=== PATIENT | male | born 1985 | race Caucasian/White ===

== ENCOUNTER 2018-11-12 14:03 | Emergency (ER) | payer OTHER ==
[2018-11-12 14:15] VITALS: BP 113/60; PULSE 62; RESP 20; TEMP 98
--- NOTE | 2018-11-12 15:17 | XR ---
EXAMINATION TYPE: XR chest 2V DATE OF EXAM: 11/12/2018 COMPARISON: 02/17/2016 TECHNIQUE: PA and lateral views submitted. HISTORY: Cough FINDINGS: Subsegmental changes at the left lung base. No pleural effusion or pneumothorax. Heart size normal. N o overt failure. IMPRESSION: 1. Left basilar atelectasis or early infiltrate.
--- NOTE | 2018-11-12 16:06 | ED ---
URI HPI - General Chief Complaint: Upper Respiratory Infection Stated Complaint: cough/body aches Time Seen by Provider: 11/12/18 14:24 Source: patient Mode of arrival: ambulatory Limitations: no limitations - History of Present Illness Initial Comments: 33-year-old male presenting today for chief complaint of cough 2 weeks. Patient states everyone in the household has had a cough. He states he's also had diarrhea and vomiting 2 days prior he states this has since subsided. Patient states that he has had chills denies fever. Patient states his daughter has had vomiting diarrhea 2 days prior. Patient denies chest pain dyspnea dyspnea on exertion lower extremity swelling neck stiffness photophobia hematemesis melena hematochezia. Remainder review of system negative upon arrival patient appears well no signs acute distress vital signs within except limits. Patient afebrile. - Related Data Home Medications Medication Instructions Recorded Confirmed Ibuprofen [Motrin Ib] 400 mg PO Q6H PRN 11/12/18 11/12/18 guaiFENesin [Mucinex] 600 mg PO Q12HR PRN 11/12/18 11/12/18 Previous Rx's Medication Instructions Recorded Azithromycin [Zithromax Z-pack] 0 mg PO DIRECTED #6 tab 11/12/18 Allergies Allergy/AdvReac Type Severity Reaction Status Date / Time loratadine [From Claritin] Allergy Confusion Verified 11/12/18 14:50 Review of Systems ROS Statement: Those systems with pertinent positive or pertinent negative responses have been documented in the HPI. ROS Other: All systems not noted in ROS Statement are negative. Past Medical History Past Medical History: No Reported History Additional Past Medical History / Comment(s): fr neck c1 fx History of Any Multi-Drug Resistant Organisms: None Reported Past Surgical History: No Surgical Hx Reported Past Psychological History: No Psychological Hx Reported Smoking Status: Current every day smoker Past Alcohol Use History: None Reported Past Drug Use History: None Reported General Exam - General Exam Comments Initial Comments: General: The patient is awake and alert, in no distress, and does not appear acutely ill. Eye: +3 mm pupils are equal, round and reactive to light, extra-ocular movements are intact. No nystagmus. There is normal conjunctiva bilaterally. No signs of icterus. No photophobia Ears, nose, mouth and throat: There are moist mucous membranes and no oral lesions. Oropharynx was not erythematous there is no tonsillar enlargement exudates or lesions. Uvula midline. Tympanic membranes are not erythematous or is no effusions bulging or retraction. No tenderness to palpation of the mastoid. No anterior cervical lymphadenopathy. Rhinorrhea, clear and bilateral nares. No tripoding, no drooling. Neck: The neck is supple, there is no tenderness or JVD. No nuchal rigidity negative Brudzinski and Kernig Cardiovascular: There is a regular rate and rhythm. No murmur, rub or gallop is appreciated. Respiratory: Lungs are clear to auscultation, respirations are non-labored, breath sounds are equal. No wheezes, stridor, rales, or rhonchi. No retractions or abdominal breathing. Gastrointestinal: Soft, non-distended, non-tender abdomen without masses or organomegaly noted. There is no rebound or guarding present. Bowel sounds are unremarkable. Musculoskeletal: Normal ROM, no tenderness. Strength 5/5. Sensation intact. Radial pulses equal bilaterally 2+. Neurological: A&O x 3. CN II-XII intact, There are no obvious motor or sensory deficits. Coordination appears grossly intact. Speech appears normal, no muffling. Skin: Skin is warm and dry and no rashes or lesions are noted. No extremity edema Psychiatric: Cooperative Limitations: no limitations Course Vital Signs 11/12/18 14:12 Temperature 98 F Pulse Rate 62 Respiratory 20 Rate Blood Pressure 113/60 O2 Sat by Pulse 99 Oximetry Medical Decision Making - Medical Decision Making Well-appearing 33-year-old male presenting for cough 3. Chest x-ray was obtained revealing findings consistent with atelectasis versus early developing pneumonia. Given patient's increasing cough with history of chills patient be started on antibiotic therapy for developing pneumonia. Lungs are clear to auscultation. Patient appears well oxygenating well on room air. No signs of toxicity. No meningeal irritation signs. Abdominal exam benign. Patient appears well patient be discharged with antibiotic therapy and outpatient follow-up with primary care provider. Patient is agreeable plan, we discussed return parameters patient verbalizes understanding. Discussed case with a provider Dr. Marquez patient plan of care and discharge. - Lab Data Lab Results 11/12/18 Range/Units 15:00 Influenza Type A RNA Not Detected (Not Detectd) Influenza Type B (PCR) Not Detected (Not Detectd) Disposition Clinical Impression: Cough Disposition: HOME SELF-CARE Condition: Good Instructions (If sedation given, give patient instructions): Upper Respiratory Infection (ED) Additional Instructions: Please use medication as discussed. Please follow-up with family doctor in the next 2 days. Please return to emergency room if the symptoms increase or worsen or for any other concerns. Prescriptions: Azithromycin [Zithromax Z-pack] 0 mg PO DIRECTED #6 tab Is patient prescribed a controlled substance at d/c from ED?: No Referrals: None,Stated [Primary Care Provider] - 1-2 days Time of Disposition: 16:06
== END 2018-11-12 16:28 | disposition home or self-care (01) ==
LOC: EC 14:03
DX: R05 Cough (principal); R19.7 Diarrhea, unspecified; R11.10 Vomiting, unspecified; F17.200 Nicotine dependence, unspecified, uncomplicated; Z88.8 Allergy status to other drugs, medicaments and biological substances
CPT/HCPCS: 71046; 87502; 99283

== ENCOUNTER 2019-11-23 17:59 | Emergency (ER) | payer OTHER ==
[2019-11-23 18:05] VITALS: BP 122/77; PULSE 74; RESP 18; TEMP 98.2
[2019-11-23] MEDS ORDERED: ACET/COD 300 MG/30 MG STARTER PACK 6 TAB BTL PO STA (18:33)
[2019-11-23] MEDS ORDERED: CYCLOBENZAPRINE 10MG STARTER 3 TAB BTL PO STA (18:33)
--- NOTE | 2019-11-23 18:33 | ED ---
Back Pain HPI - General Chief Complaint: Back Pain/Injury Stated Complaint: lower back pain Time Seen by Provider: 11/23/19 18:18 Source: patient Limitations: no limitations - History of Present Illness Initial Comments: 34-year-old male presents today for chief complaint of low back pain x weeks. 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 She denies loss of bowel bladder control urinary tensions fever or IV drug use. Patient denies any falls or direct trauma to the back denies a history of cancer. Patient denies any flank pain chest pain shortness of breath he denies any inability to ambulate patient has no additional complaints. Upon arrival patient appears well there is no signs of acute distress. - Related Data Home Medications Medication Instructions Recorded Confirmed Ibuprofen [Motrin Ib] 400 mg PO Q6H PRN 11/12/18 11/12/18 guaiFENesin [Mucinex] 600 mg PO Q12HR PRN 11/12/18 11/12/18 Previous Rx's Medication Instructions Recorded Azithromycin [Zithromax Z-pack] 0 mg PO DIRECTED #6 tab 11/12/18 Allergies Allergy/AdvReac Type Severity Reaction Status Date / Time loratadine [From Claritin] Allergy Confusion Verified 11/23/19 18:05 Review of Systems ROS Statement: Those systems with pertinent positive or pertinent negative responses have been documented in the HPI. ROS Other: All systems not noted in ROS Statement are negative. Past Medical History Past Medical History: No Reported History Additional Past Medical History / Comment(s): fr neck c1 fx History of Any Multi-Drug Resistant Organisms: None Reported Past Surgical History: No Surgical Hx Reported Past Psychological History: No Psychological Hx Reported Smoking Status: Current every day smoker Past Alcohol Use History: None Reported Past Drug Use History: None Reported General Exam - General Exam Comments Initial Comments: General: The patient is awake and alert, in no distress Eye: Pupils are equal, round and reactive to light, extra-ocular movements are intact. No nystagmus. There is normal conjunctiva bilaterally. No signs of icterus. Cardiovascular: There is a regular rate and rhythm. No murmur, rub or gallop is appreciated. Respiratory: Lungs are clear to auscultation, respirations are non-labored, breath sounds are equal. No wheezes, stridor, rales, or rhonchi. Musculoskeletal: Normal inspection of the cervical thoracic and lumbar spine. No midline tenderness. Patient is midline tenderness mostly paravertebral muscles of the lumbar spine. Full range motion of the lower extremities negative straight leg raise. Strength of the lower extremities. Sensation of lower extremities including the saddle region patient refused digital rectal examination. DP pulses equal bilaterally 2+. Ambulates and moves without difficulty. Neurological: A&O x 3. CN II-XII intact grossly, There are no obvious motor or sensory deficits. Coordination appears grossly intact. Speech is normal. Skin: Skin is warm and dry and no rashes or lesions are noted. Psychiatric: Cooperative, appropriate mood & affect, normal judgment. Limitations: no limitations Course Vital Signs 11/23/19 18:03 Temperature 98.2 F Pulse Rate 74 Respiratory 18 Rate Blood Pressure 122/77 O2 Sat by Pulse 100 Oximetry Medical Decision Making - Medical Decision Making 34-year-old male presenting today for chief complaint of low back pain. He has a lot of repetitive action at work. No midline tenderness no history concerning for cauda equina patient refused a rectal exam however there is no concerning symptoms such as loss of bowel bladder control. No other red flags. (-) SLR. No radiation of pain. Patient most likely has muscle strain will be discharged with muscle relaxer. patient agreeable to care plan. Disposition Clinical Impression: Lower back injury, Low back strain, Low back pain Disposition: HOME SELF-CARE Instructions (If sedation given, give patient instructions): Acute Low Back Pain (ED) Additional Instructions: Please use medication as discussed. Please follow-up with family doctor in the next 2 days. Please return to emergency room if the symptoms increase or worsen or for any other concerns. Is patient prescribed a controlled substance at d/c from ED?: No Referrals: None,Stated [Primary Care Provider] - 1-2 days Time of Disposition: 18:33
== END 2019-11-23 18:46 | disposition home or self-care (01) ==
LOC: EC 17:59
DX: S39.012A Strain of muscle, fascia and tendon of lower back, initial encounter (principal); F17.200 Nicotine dependence, unspecified, uncomplicated; Z87.81 Personal history of (healed) traumatic fracture; Z88.8 Allergy status to other drugs, medicaments and biological substances; X50.0XXA Overexertion from strenuous movement or load, initial encounter; Y93.89 Activity, other specified
CPT/HCPCS: 99283

== ENCOUNTER 2020-03-02 09:35 | Emergency (ER) | payer OTHER ==
[2020-03-02 09:43] VITALS: RESP 18
[2020-03-02] MEDS ORDERED: methylPREDNISolone SOD SUCCI 125 MG/2 ML VIAL IV STA (09:44)
[2020-03-02] MEDS ORDERED: FAMOTIDINE 20 MG/2 ML VIAL IV STA (09:44)
--- NOTE | 2020-03-02 09:46 | ED ---
Allergic Reaction HPI - General Stated complaint: Allergic reaction Time Seen by Provider: 03/02/20 09:38 Source: patient, EMS, RN notes reviewed Mode of arrival: EMS Limitations: no limitations - History of Present Illness Initial Comments: 34-year-old male present emergency department with chief complaint ALLERGIC reaction. Patient states he was stung 3 times and has not, facial region. Patient states that he's had swelling in the past related to bee stings. P.m. worried because he started having some throat itching this. Patient was given Benadryl IV in therapy by EMS. Patient states it is helping. Patient denies any other system complaints she does feel slightly itchy. - Related Data Home Medications Medication Instructions Recorded Confirmed Ibuprofen [Motrin Ib] 400 mg PO Q6H PRN 11/12/18 11/12/18 guaiFENesin [Mucinex] 600 mg PO Q12HR PRN 11/12/18 11/12/18 Previous Rx's Medication Instructions Recorded Azithromycin [Zithromax Z-pack] 0 mg PO DIRECTED #6 tab 11/12/18 Allergies Allergy/AdvReac Type Severity Reaction Status Date / Time bee venom protein (honey bee) Allergy Dyspnea Verified 03/02/20 09:39 loratadine [From Claritin] Allergy Confusion Verified 11/23/19 18:05 Review of Systems ROS Statement: Those systems with pertinent positive or pertinent negative responses have been documented in the HPI. ROS Other: All systems not noted in ROS Statement are negative. Past Medical History Past Medical History: No Reported History Additional Past Medical History / Comment(s): fr neck c1 fx History of Any Multi-Drug Resistant Organisms: None Reported Past Surgical History: No Surgical Hx Reported Past Psychological History: No Psychological Hx Reported Smoking Status: Never smoker Past Alcohol Use History: None Reported Past Drug Use History: None Reported General Exam Limitations: no limitations General appearance: alert, in no apparent distress Head exam: Present: atraumatic, normocephalic, normal inspection Eye exam: Present: normal appearance, PERRL, EOMI. Absent: scleral icterus, conjunctival injection, periorbital swelling ENT exam: Present: normal exam, normal oropharynx, mucous membranes moist, TM's normal bilaterally, normal external ear exam Neck exam: Present: normal inspection, full ROM. Absent: tenderness, meningismus, lymphadenopathy Respiratory exam: Present: normal lung sounds bilaterally. Absent: respiratory distress, wheezes, rales, rhonchi, stridor Cardiovascular Exam: Present: regular rate, normal rhythm, normal heart sounds. Absent: systolic murmur, diastolic murmur, rubs, gallop, clicks Skin exam: Present: warm, dry, intact, normal color, rash (Mild swelling noted on the right ear, right side of his scalp and anterior neck region) Course Vital Signs 03/02/20 03/02/20 09:39 09:52 Temperature 97.9 F Pulse Rate 68 Respiratory 18 18 Rate Blood Pressure 118/67 O2 Sat by Pulse 97 Oximetry - Reevaluation(s) Reevaluation #1: 03/02/20 10:29 Patient reevaluated stating that symptoms have resolved patient feels greatly improved. Patient will be discharged Medical Decision Making - Medical Decision Making 34-year-old male presented for bee sting. Patient had 3 bee stings noted to the facial region. Patient did have some mild symptoms patient was given some Medrol, penicillin emergency department was given Benadryl prior arrival patient will continue Benadryl every 6 hours return for any worsening. Disposition Clinical Impression: Allergic reaction to insect sting Disposition: HOME SELF-CARE Condition: Stable Instructions (If sedation given, give patient instructions): Insect Bite or Sting (ED) Additional Instructions: Continue Benadryl every 6 hours. Please return to the Emergency Department if symptoms worsen or any other concerns. Is patient prescribed a controlled substance at d/c from ED?: No Referrals: None,Stated [Primary Care Provider] - 1-2 days Time of Disposition: 10:30
[2020-03-02 11:00] VITALS: BP 114/64; PULSE 63; TEMP 98.2
== END 2020-03-02 09:56 | disposition home or self-care (01) ==
LOC: EC 09:35
DX: T63.441A Toxic effect of venom of bees, accidental (unintentional), initial encounter (principal); Z91.030 Bee allergy status; Z88.8 Allergy status to other drugs, medicaments and biological substances; Y93.89 Activity, other specified
CPT/HCPCS: 99284; 96374; 96375; J2930

== ENCOUNTER 2020-04-19 16:04 | Observation (INO) | payer OTHER ==
[2020-04-19 17:10] LABS: Basophils # (A) 0.1 k/uL (0-0.2); Basophils % (A) 1 %; Eosinophils # (A) 0.2 k/uL (0-0.7); Eosinophils % (A) 2 %; HCT 49.5 % (39.0-53.0); HGB 16.1 gm/dL (13.0-17.5); Lymphocytes # (A) 1.9 k/uL (1.0-4.8); Lymphocytes % (A) 22 %; MCH 30.1 pg (25.0-35.0); MCHC 32.5 g/dL (31.0-37.0); MCV 92.5 fL (80.0-100.0); Mean Platelet Volume 6.8; Monocytes # (A) 0.6 k/uL (0-1.0); Monocytes % (A) 6 %; Neutrophils # (A) 5.9 k/uL (1.3-7.7); Neutrophils % (A) 67 %; Platelet Count 275 k/uL (150-450); RBC 5.35 m/uL (4.30-5.90); RDW 12.1 % (11.5-15.5); WBC 8.8 k/uL (3.8-10.6)
--- NOTE | 2020-04-19 17:16 | XR ---
EXAMINATION: XR chest 2V DATE AND TIME: 04/19/2020 5:12 PM CLINICAL INDICATION: PHH; Chest Pain TECHNIQUE: Departmental protocol COMPARISON: 11/12/2018 FINDINGS: The lungs are clear. The pleural spaces are negative. The cardiac silhouette is not enlarged. The remainder of the mediastinal silhouette is unremarkable. The skeletal structures and soft tissues are negative for acute findings. IMPRESSION: No acute radiographic process.
[2020-04-19 17:19] LABS: Partial Thromboplastin Time 23.7 sec (22.0-30.0); Prothrombin Time 10.4 sec (9.0-12.0)
[2020-04-19 17:22] LABS: ALT 18 U/L (4-49); AST 27 U/L (17-59); African American GFR (CKD) >90 (>60 ml/min/1.73 sqM); Albumin 4.4 g/dL (3.5-5.0); Alkaline Phosphatase 59 U/L (38-126); Anion Gap 7 mmol/L; Blood Urea Nitrogen 23 mg/dL (9-20); Calcium 9.7 mg/dL (8.4-10.2); Carbon Dioxide 26 mmol/L (22-30); Chloride 104 mmol/L (98-107); Glucose 125 mg/dL (74-99); Lipase 55 U/L (23-300); Magnesium 2.1 mg/dL (1.6-2.3); Non-African American GFR(CKD) >90 (>60 ml/min/1.73 sqM); Potassium 3.9 mmol/L (3.5-5.1); Sodium 137 mmol/L (137-145); Total Bilirubin 0.7 mg/dL (0.2-1.3); Total Protein 7.2 g/dL (6.3-8.2)
--- NOTE | 2020-04-19 17:31 | ED ---
General Adult HPI - General Chief complaint: Chest Pain Stated complaint: chest pain Time Seen by Provider: 04/19/20 16:29 Source: patient, RN notes reviewed Mode of arrival: wheelchair Limitations: no limitations - History of Present Illness Initial comments: 34-year-old male without any significant past medical history presents to the emergency department for a chief complaint of chest pain. Patient states this chest pain has been intermittent over the past 5 years. States it usually has a pressure feeling in the center of his chest after he does certain physical activities. Patient reports that sometimes it feels like his heart is beating quickly at those times. He becomes short of breath. Patient reports this happened again last night and he still had some mild pressure so decided to present to the emergency room. Patient denies any leg swelling. Denies shortness of breath. Patient is requesting a work note as this sometimes happ ens at work.Patient has no other complaints at this time including shortness of breath, abdominal pain, nausea or vomiting, headache, or visual changes. - Related Data Home Medications Medication Instructions Recorded Confirmed Ibuprofen [Motrin Ib] 400 mg PO Q6H PRN 11/12/18 11/12/18 guaiFENesin [Mucinex] 600 mg PO Q12HR PRN 11/12/18 11/12/18 Previous Rx's Medication Instructions Recorded Azithromycin [Zithromax Z-pack (6 0 mg PO DIRECTED #6 tab 11/12/18 tabs)] Allergies Allergy/AdvReac Type Severity Reaction Status Date / Time bee venom protein (honey bee) Allergy Dyspnea Verified 04/19/20 16:21 loratadine [From Claritin] Allergy Confusion Verified 04/19/20 16:21 Review of Systems ROS Statement: Those systems with pertinent positive or pertinent negative responses have been documented in the HPI. ROS Other: All systems not noted in ROS Statement are negative. Past Medical History Past Medical History: No Reported History Additional Past Medical History / Comment(s): fr neck c1 fx History of Any Multi-Drug Resistant Organisms: None Reported Past Surgical History: No Surgical Hx Reported Past Psychological History: No Psychological Hx Reported Smoking Status: Never smoker Past Alcohol Use History: None Reported Past Drug Use History: None Reported General Exam Limitations: no limitations General appearance: alert, in no apparent distress Head exam: Present: atraumatic, normocephalic, normal inspection Eye exam: Present: normal appearance, PERRL, EOMI. Absent: scleral icterus, conjunctival injection, periorbital swelling ENT exam: Present: normal exam, mucous membranes moist Neck exam: Present: normal inspection, full ROM. Absent: tenderness, meningismus, lymphadenopathy Respiratory exam: Present: normal lung sounds bilaterally. Absent: respiratory distress, wheezes, rales, rhonchi, stridor Cardiovascular Exam: Present: regular rate, normal rhythm, normal heart sounds. Absent: systolic murmur, diastolic murmur, rubs, gallop, clicks GI/Abdominal exam: Present: soft, normal bowel sounds. Absent: distended, tenderness, guarding, rebound, rigid Neurological exam: Present: alert Course Vital Signs 04/19/20 16:19 Temperature 98.8 F Pulse Rate 65 Respiratory 20 Rate Blood Pressure 115/71 O2 Sat by Pulse 97 Oximetry EKG Findings - EKG Comments: EKG Findings:: NSR, vent rate 70. TN int 148, QTc 403 Medical Decision Making - Medical Decision Making Vitals are stable. CBC CMP unremarkable. Troponin is negative. Chest x-ray shows no acute radiographic process. EKG shows a normal sinus rhythm with an incomplete right bundle. Given patient's symptoms that worsen on exertion and are described as a pressure patient will be admitted for cardiology consultation and trending troponin. - Lab Data Result diagrams: 04/19/20 16:55 04/19/20 16:55 Lab Results 04/19/20 04/19/20 04/19/20 Range/Units 16:55 16:55 16:55 WBC 8.8 (3.8-10.6) k/uL RBC 5.35 (4.30-5.90) m/uL Hgb 16.1 (13.0-17.5) gm/dL Hct 49.5 (39.0-53.0) % MCV 92.5 (80.0-100.0) fL MCH 30.1 (25.0-35.0) pg MCHC 32.5 (31.0-37.0) g/dL RDW 12.1 (11.5-15.5) % Plt Count 275 (150-450) k/uL Neutrophils % 67 % Lymphocytes % 22 % Monocytes % 6 % Eosinophils % 2 % Basophils % 1 % Neutrophils # 5.9 (1.3-7.7) k/uL Lymphocytes # 1.9 (1.0-4.8) k/uL Monocytes # 0.6 (0-1.0) k/uL Eosinophils # 0.2 (0-0.7) k/uL Basophils # 0.1 (0-0.2) k/uL PT 10.4 (9.0-12.0) sec INR 1.0 (<1.2) APTT 23.7 (22.0-30.0) sec Sodium 137 (137-145) mmol/L Potassium 3.9 (3.5-5.1) mmol/L Chloride 104 (98-107) mmol/L Carbon Dioxide 26 (22-30) mmol/L Anion Gap 7 mmol/L BUN 23 H (9-20) mg/dL Creatinine 0.86 (0.66-1.25) mg/dL Est GFR (CKD-EPI)AfAm >90 (>60 ml/min/1.73 sqM) Est GFR (CKD-EPI)NonAf >90 (>60 ml/min/1.73 sqM) Glucose 125 H (74-99) mg/dL Calcium 9.7 (8.4-10.2) mg/dL Magnesium 2.1 (1.6-2.3) mg/dL Total Bilirubin 0.7 (0.2-1.3) mg/dL AST 27 (17-59) U/L ALT 18 (4-49) U/L Alkaline Phosphatase 59 (38-126) U/L Troponin I (0.000-0.034) ng/mL Total Protein 7.2 (6.3-8.2) g/dL Albumin 4.4 (3.5-5.0) g/dL Lipase 55 (23-300) U/L 04/19/20 Range/Units 16:55 WBC (3.8-10.6) k/uL RBC (4.30-5.90) m/uL Hgb (13.0-17.5) gm/dL Hct (39.0-53.0) % MCV (80.0-100.0) fL MCH (25.0-35.0) pg MCHC (31.0-37.0) g/dL RDW (11.5-15.5) % Plt Count (150-450) k/uL Neutrophils % % Lymphocytes % % Monocytes % % Eosinophils % % Basophils % % Neutrophils # (1.3-7.7) k/uL Lymphocytes # (1.0-4.8) k/uL Monocytes # (0-1.0) k/uL Eosinophils # (0-0.7) k/uL Basophils # (0-0.2) k/uL PT (9.0-12.0) sec INR (<1.2) APTT (22.0-30.0) sec Sodium (137-145) mmol/L Potassium (3.5-5.1) mmol/L Chloride (98-107) mmol/L Carbon Dioxide (22-30) mmol/L Anion Gap mmol/L BUN (9-20) mg/dL Creatinine (0.66-1.25) mg/dL Est GFR (CKD-EPI)AfAm (>60 ml/min/1.73 sqM) Est GFR (CKD-EPI)NonAf (>60 ml/min/1.73 sqM) Glucose (74-99) mg/dL Calcium (8.4-10.2) mg/dL Magnesium (1.6-2.3) mg/dL Total Bilirubin (0.2-1.3) mg/dL AST (17-59) U/L ALT (4-49) U/L Alkaline Phosphatase (38-126) U/L Troponin I <0.012 (0.000-0.034) ng/mL Total Protein (6.3-8.2) g/dL Albumin (3.5-5.0) g/dL Lipase (23-300) U/L Disposition Clinical Impression: Chest pain Disposition: ADMITTED IP TO THIS HOSP Is patient prescribed a controlled substance at d/c from ED?: No Referrals: None,Stated [Primary Care Provider] - 1-2 days Time of Disposition: 18:22
[2020-04-19] MEDS ORDERED: ASPIRIN 81 MG PO STA (18:18)
[2020-04-19] MEDS: SODIUM CHLORIDE 0.9% 1,000 ML IV SCH (18:57)
[2020-04-19 19:00] VITALS: RESP 18
--- NOTE | 2020-04-19 23:28 | P.HPIM ---
History of Present Illness H&P Date: 04/19/20 The patient is a 34-year-old male with no known PMH who presented to the ED with complaints of chest pain. The patient reports that he has been experiencing intermittent substernal chest pain with tenderness for the past 5 years. He reports that the main concern is the tenderness, and that the pain is rare. The pain and tenderness largely comes on after he exercises his chest muscles (pushups and chest press). It is sharp in nature, substernal, nonpleuritic, and nonradiating. He did report that several times over the past 5 years, he has woken up suddenly, during these episodes with his tenderness and pain radiating down to his left arm, with associated palpitations and shortness of breath that is resolved completely with breathing out the window of his room. He reports that his exercise tolerance is excellent and that he is able to run a 6-1/2 minute mile and exercises on a daily basis. She denied lower extremity edema, orthopnea, PND, family history of premature coronary artery disease, nausea, vomiting, or diaphoresis. Denied cough, fever, chills. Denied abdominal pain, or diarrhea. In the emergency room, an EKG revealed a normal sinus rhythm at 70 bpm with an incomplete right bundle heena block. Chest x-ray was unremarkable. Troponin was negative. Review of Systems Pertinent positives and negatives as discussed in HPI, a complete review of systems was performed and all other systems are negative. Past Medical History Past Medical History: No Reported History Additional Past Medical History / Comment(s): fr neck c1 fx History of Any Multi-Drug Resistant Organisms: None Reported Past Surgical History: No Surgical Hx Reported Past Psychological History: No Psychological Hx Reported Smoking Status: Former smoker Past Alcohol Use History: Abuse Additional Past Alcohol Use History / Comment(s): quit drinking 2 months ago; used to drink heavily Past Drug Use History: None Reported Medications and Allergies Home Medications Medication Instructions Recorded Confirmed Type No Known Home Medications 04/19/20 04/19/20 History Allergies Allergy/AdvReac Type Severity Reaction Status Date / Time bee venom protein (honey bee) Allergy Dyspnea Verified 04/19/20 18:30 loratadine [From Claritin] Allergy Confusion Verified 04/19/20 18:30 Physical Exam Vitals: Vital Signs Temp Pulse Pulse Resp BP BP Pulse Ox 09/24/20 19:06 98.3 F 53 L 18 120/70 98 04/19/20 18:59 98.9 F 71 18 125/74 96 04/19/20 16:19 98.8 F 65 20 115/71 97 Intake and Output 04/19/20 04/19/20 04/20/20 14:59 22:59 06:59 Intake Total 450 Balance 450 Intake: Oral 450 Other: Weight 81.647 kg General: non toxic, no distress, appears at stated age, normal weight Derm: no unusual rashes/lesions no unusual ecchymoses, warm, dry Head: atraumatic, normocephalic, symmetric Eyes: EOMI, no lid lag, anicteric sclera, pupils equal round reactive to light ENT: Nose and ears atraumatic, no thrush, no pharyngeal erythema Neck: No thyromegaly, no cervical lymphadenopathy, trachea midline, supple Mouth: no lip lesion, mucus membranes moist Cardiovascular: S1S2 reg, no murmur, positive posterior tibial pulse bilateral, no edema, capillary refill less than 2 seconds, no chest wall tenderness to pal pation Lungs: CTA bilateral, no rhonchi, no rales , no accessory muscle use Abdominal: soft, nontender to palpation, no guarding, no appreciable organomegaly, normal bowel sounds Ext: no gross muscle atrophy, muscle strength 5 out of 5 in all 4 extremities grossly, no contractures, Neuro: CN II-XI grossly intact, light touch intact all 4 extremities, finger to nose within normal limits, Psych: Alert, oriented, appropriate affect Results CBC & Chem 7: 04/19/20 16:55 04/19/20 16:55 Labs: Abnormal Lab Results - Last 24 Hours (Table) 04/19/20 Range/Units 16:55 BUN 23 H (9-20) mg/dL Glucose 125 H (74-99) mg/dL Assessment and Plan Plan: Chest pain, likely costochondritis with component of anxiety and panic disorder, rule out ACS -Cardiology consulted -Echocardiogram -Cardiac monitoring -Trend troponin DVT prophylaxis -Heparin subq The patient is admitted with an anticipated less than 2 midnight stay for evaluation of chest pain CODE STATUS: Full Code Discussed with: Patient Anticipated discharge date: 04/[address]: Home A total of 35 minutes was spent on the care of this complex patient more than 50% of the time was spent in counseling and care coordination.
[2020-04-20] MEDS: HEPARIN SODIUM,PORCINE 5,000 UNIT/ML 1 ML VIAL SQ SCH ×2 (01:58→09:24)
[2020-04-20] MEDS: SODIUM CHLORIDE 0.9% 1,000 ML IV SCH (01:59)
[2020-04-20 06:12] LABS: Cholesterol 207 mg/dL (<200); HDL Cholesterol 44 mg/dL (40-60); LDL Cholesterol,Calculated 150 mg/dL (0-99); Triglycerides 64 mg/dL (<150)
[2020-04-20] MEDS ORDERED: ASPIRIN 325 MG TAB PO SCH (09:00)
--- NOTE | 2020-04-20 10:36 | P.CRDCN ---
History of Present Illness History of present illness: HISTORY OF PRESENTING ILLNESS This is a pleasant 34-year-old male past medical history significant for heavy alcohol use and former nicotine dependence. He states he last had a drink of alcohol or cigarette 2 months ago. He denies prior history of coronary artery disease and does not follow regularly with a refuge worker for any reason. We have been asked to see in consultation for chest pain. He describes a tight tightening sensation in the midsternal/epigastric region. This discomfort has been intermittent and ongoing for the previous 5 years. He states he is quite active physically he runs regularly. He denies chest discomfort with exertion or activity. He states the chest discomfort comes at times after he has done an upper body workout. He feels as though something is pulling or tugging in his chest. There is no radiation through to the back, down the arm, into the neck or jaw. He denies associated shortness of breath, dizziness, palpitations, nausea, vomiting or diaphoresis. He is seen and examined resting comfortably laying flat in bed in no acute distress. On this occasion he was woken up in the middle of the night with a tight sensation in the middle of his chest and he states he was unable to speak for 20 seconds thereafter. DIAGNOSTICS EKG reveals sinus mechanism with right bundle branch 2. No acute ischemic changes noted. Chest xray negative for an acute cardiopulmonary process. Laboratory reviewed, CBC unremarkable, sodium 137, potassium 3.9, creatinine 0.86, cardiac enzymes negative 3, LDL 1:15 HDL 44. He takes no daily cardiac medications REVIEW OF SYSTEMS At the time of my exam: CONSTITUTIONAL: Denies fever or chills. CARDIOVASCULAR: Denies chest pain, shortness of breath, orthopnea, PND or palpitations. RESPIRATORY: Denies cough. GASTROINTESTINAL: Denies abdominal pain, diarrhea, constipation, nausea or vomiting. MUSCULOSKELETAL: Denies myalgias. NEUROLOGIC: Denies numbness, tingling or weakness. ENDOCRINE: Denies fatigue, weight change, polydipsia or polyurina. GENITOURINARY: Denies burning, hematuria or urgency with micturation. HEMATOLOGIC: Denies history of anemia or bleeding. PHYSICAL EXAMINATION Blood pressure 114/74 heart rate 51 afebrile and maintaining oxygen saturation on room air. CONSTITUTIONAL: No apparent distress. HEENT: Head is normocephalic. Pupils are equal, round. Sclerae anicteric. Mucous membranes of the mouth are moist. No JVD. No carotid bruit. CHEST EXAMINATION: Lungs are clear to auscultation. No chest wall tenderness is noted on palpation or with deep breathing. HEART EXAMINATION: Regular rate and rhythm. S1, S2 heard. No murmurs, gallops or rub. ABDOMEN: Soft, nontender. Positive bowel sounds. EXTREMITIES: 2+ peripheral pulses, no lower extremity edema and no calf tenderness. NEUROLOGIC EXAMINATION: Patient is awake, alert and oriented x3. ASSESSMENT Chest pain, musculoskeletal. Suggestive of costochondritis Former nicotine dependence Dyslipidemia PLAN An acute coronary event has been ruled out. Pain is atypical for angina and related to under sliding musculoskeletal strain. Lengthy discussion with the patient regarding continued alcohol and tobacco ce ssation. Recommend lifestyle modifications for lowering of LDL cholesterol. No further cardiac workup. Follow-up the office with Dr. Hoover in 2-3 weeks. Thank you kindly for this consultation. Nurse Practitioner note has been reviewed, I agree with a documented findings and plan of care. Patient was seen and examined. Past Medical History Past Medical History: No Reported History Additional Past Medical History / Comment(s): fr neck c1 fx History of Any Multi-Drug Resistant Organisms: None Reported Past Surgical History: No Surgical Hx Reported Past Psychological History: No Psychological Hx Reported Smoking Status: Former smoker Past Alcohol Use History: Abuse Additional Past Alcohol Use History / Comment(s): quit drinking 2 months ago; used to drink heavily Past Drug Use History: None Reported Medications and Allergies Home Medications Medication Instructions Recorded Confirmed Type No Known Home Medications 04/19/20 04/19/20 History Allergies Allergy/AdvReac Type Severity Reaction Status Date / Time bee venom protein (honey bee) Allergy Dyspnea Verified 04/19/20 18:30 loratadine [From Claritin] Allergy Confusion Verified 04/19/20 18:30 Physical Exam Vitals: Vital Signs Temp Pulse Pulse Resp BP BP Pulse Ox 04/20/20 03:00 97.5 F L 51 L 18 114/74 99 04/19/20 21:00 98.3 F 53 L 18 120/70 98 04/19/20 19:06 98.3 F 53 L 18 120/70 98 04/19/20 18:59 98.9 F 71 18 125/74 96 04/19/20 16:19 98.8 F 65 20 115/71 97 Intake and Output 04/19/20 04/20/20 04/20/20 22:59 06:59 14:59 Intake Total 900 0 Balance 900 0 Intake: Oral 900 0 Other: Voiding Method Toilet Toilet # Voids 1 1 Weight 81.647 kg Results 04/19/20 16:55 04/19/20 16:55 Cardiac Enzymes 04/19/20 04/19/20 04/19/20 Range/Units 16:55 16:55 20:14 AST 27 (17-59) U/L Troponin I <0.012 <0.012 (0.000-0.034) ng/mL 04/19/20 Range/Units 22:32 AST (17-59) U/L Troponin I <0.012 (0.000-0.034) ng/mL Coagulation 04/19/20 Range/Units 16:55 PT 10.4 (9.0-12.0) sec APTT 23.7 (22.0-30.0) sec Lipids 04/20/20 Range/Units 05:28 Triglycerides 64 (<150) mg/dL Cholesterol 207 H (<200) mg/dL HDL Cholesterol 44 (40-60) mg/dL CBC 04/19/20 Range/Units 16:55 WBC 8.8 (3.8-10.6) k/uL RBC 5.35 (4.30-5.90) m/uL Hgb 16.1 (13.0-17.5) gm/dL Hct 49.5 (39.0-53.0) % Plt Count 275 (150-450) k/uL Comprehensive Metabolic Panel 04/19/20 Range/Units 16:55 Sodium 137 (137-145) mmol/L Potassium 3.9 (3.5-5.1) mmol/L Chloride 104 (98-107) mmol/L Carbon Dioxide 26 (22-30) mmol/L BUN 23 H (9-20) mg/dL Creatinine 0.86 (0.66-1.25) mg/dL Glucose 125 H (74-99) mg/dL Calcium 9.7 (8.4-10.2) mg/dL AST 27 (17-59) U/L ALT 18 (4-49) U/L Alkaline Phosphatase 59 (38-126) U/L Total Protein 7.2 (6.3-8.2) g/dL Albumin 4.4 (3.5-5.0) g/dL Current Medications Generic Name Dose Route Start Last Admin Trade Name Ashanti PRN Reason Stop Dose Admin Aspirin 325 mg 04/20/20 09:00 Aspirin 325 Mg Tab PO DAILY TANYA Heparin Sodium (Porcine) 5,000 unit 04/20/20 00:00 04/20/20 01:58 Heparin Sodium,Porcine 5,000 Unit/Ml 1 Ml Vial SQ Not Given Q8HR TANYA Sodium Chloride 1,000 mls @ 100 mls/hr 04/19/20 18:30 04/20/20 01:59 Saline 0.9% IV 100 mls/hr .Q10H TANYA Administration Intake and Output 04/19/20 04/20/20 04/20/20 22:59 06:59 14:59 Intake Total 900 0 Balance 900 0 Intake: Oral 900 0 Other: Voiding Method Toilet Toilet # Voids 1 1 Weight 81.647 kg 04/19/20 16:55 04/19/20 16:55
--- NOTE | 2020-04-20 13:40 | P.DS ---
Providers Date of admission: 04/19/20 18:22 Expected date of discharge: 04/20/20 Attending physician: Alfredo Angelo Consults: 04/19/20 18:22 Consult Physician Routine Consulting Provider: [facility] Consult Reason/Comments: chest pain Do you want consulting provider notified?: Yes Primary care physician: Stated None Hospital Course: This is a 34-year-old male with no significant past medical history who presented to the emergency room with chest pain. Patient was evaluated in the ER and placed on observation. Twelve-lead EKG showed no acute ischemic changes. Chest x-ray with no acute findings. Serial troponin negative 3 sets. Patient was seen and evaluated by cardiology. His chest pain was thought to be atypical in nature. He was counseled extensively regarding tobacco cessation and alcohol abuse. He was cleared by cardiology for discharge. He was advised regarding lifestyle modification and exercise. He will be discharged home in a stable condition. For further details about this hospitalization please refer to the electronic chart. Plan - Discharge Summary Discharge Rx Participant: Yes New Discharge Prescriptions: No Action No Known Home Medications Discharge Medication List No Known Home Medications 04/19/20 [History] Follow up Appointment(s)/Referral(s): Ulises Hoover MD [STAFF PHYSICIAN] - 4 Weeks None,Stated [Primary Care Provider] - 1-2 days Patient Instructions/Handouts: Hyperlipidemia (GEN), Mediterranean Diet (GEN) Discharge Disposition: HOME SELF-CARE
[2020-04-20 16:51] VITALS: BP 110/66; PULSE 58; TEMP 97.9
== END 2020-04-20 16:28 | disposition home or self-care (01) ==
LOC: EC 16:04 → 3NCARDOBS 18:22
PROVIDERS: ADMIT Internal Medicine; ATTEND Internal Medicine
DX: R07.89 Other chest pain (principal); Z87.891 Personal history of nicotine dependence; E78.5 Hyperlipidemia, unspecified; F10.11 Alcohol abuse, in remission; I45.19 Other right bundle-branch block; F41.0 Panic disorder [episodic paroxysmal anxiety]; F41.9 Anxiety disorder, unspecified; Z88.8 Allergy status to other drugs, medicaments and biological substances; Z91.030 Bee allergy status
CPT/HCPCS: 93005 ×2; 96372; 99285; 36415; 80061; 80053; 83690; 83735; 84484; 85025; 85610; 85730; 71046; G0378 ×2; J1644

== ENCOUNTER 2021-09-08 09:58 | Emergency (ER) | payer OTHER ==
[2021-09-08 10:02] VITALS: TEMP 98.6
[2021-09-08] MEDS ORDERED: methocarbamoL 750 MG TAB PO STA (10:32)
[2021-09-08] MEDS ORDERED: KETOROLAC 15 MG/ML 1 ML VIAL IM STA (10:33)
--- NOTE | 2021-09-08 10:34 | ED ---
Back Pain HPI - General Chief Complaint: Back Pain/Injury Stated Complaint: Back Injury Time Seen by Provider: 09/08/21 10:03 Source: patient Limitations: no limitations - History of Present Illness Initial Comments: patient is a 36-year-old male, presenting to the emergency department with complaints of right-sided low back pain that started yesterday. He picked up his 5-year-old son and had pain in his right low back. He states he felt a pop. He denies any numbness and tingling down his extremities. No bowel or bladder incontinence. He states it hurts to have a bowel movement and to bear down and also to twist his trunk. He did not take anything today for pain. Denies any previous back surgeries. He has no further complaints. - Related Data Previous Rx's Medication Instructions Recorded Cyclobenzaprine [Flexeril] 5 mg PO BID #10 tablet 09/08/21 Allergies Allergy/AdvReac Type Severity Reaction Status Date / Time bee venom protein (honey bee) Allergy Dyspnea Verified 09/08/21 10:45 loratadine [From Claritin] Allergy Confusion Verified 09/08/21 10:45 Review of Systems ROS Statement: Those systems with pertinent positive or pertinent negative responses have been documented in the HPI. ROS Other: All systems not noted in ROS Statement are negative. Past Medical History Past Medical History: No Reported History Additional Past Medical History / Comment(s): fr neck c1 fx History of Any Multi-Drug Resistant Organisms: None Reported Past Surgical History: No Surgical Hx Reported Past Psychological History: No Psychological Hx Reported Smoking Status: Current every day smoker Past Alcohol Use History: None Reported Past Drug Use History: None Reported General Exam - General Exam Comments Initial Comments: GENERAL: Patient is well-developed and well-nourished. Patient is nontoxic and in no acute distress. HEAD: Atraumatic, normocephalic. EYES: Pupils equal round and reactive to light, extraocular movements intact, sclera anicteric, conjunctiva are normal. Eyelids were unremarkable. ENT: Moist mucous membranes. NECK: Normal range of motion, supple without lymphadenopathy or JVD. LUNGS: Unlabored respirations. Breath sounds clear to auscultation bilaterally and equal. No wheezes rales or rhonchi. HEART: Regular rate and rhythm without murmurs, rubs or gallops. ABDOMEN: Soft, nontender, normoactive bowel sounds. No guarding, no rebound. No masses appreciated. MUSCULOSKELETAL: Normal extremities with adequate strength and normal range of motion, no pitting or edema. No clubbing or cyanosis.no pain to palpation of the lumbar spine. He does have pain with trunk rotation. Some mild pain on right SI joint. NEUROLOGICAL: Patient is alert and oriented x 3. Motor and sensory are also intact. Cranial nerves II through XII grossly intact. Symmetrical smile. Normal speech, normal gait. PSYCH: Normal mood, normal affect. SKIN: Warm, Dry, normal turgor, no rashes or lesions noted. Limitations: no limitations Course Vital Signs 09/08/21 09/08/21 09:59 10:48 Temperature 98.6 F Pulse Rate 96 64 Respiratory 16 18 Rate Blood Pressure 102/59 96/55 O2 Sat by Pulse 98 97 Oximetry Medical Decision Making - Medical Decision Making patient is a 36-year-old male here with right low back pain after he picked at the sun yesterday. Findings are consistent with lumbar strain. I did give him Toradol muscle relaxer here. I will discharge him home with muscle relaxer. He can take Tylenol Motrin for discomfort, heat and/or ice. He did request a work note. Patient stable for discharge. Disposition Clinical Impression: Strain of lumbar region Disposition: HOME SELF-CARE Condition: Stable Instructions (If sedation given, give patient instructions): Acute Low Back Pain (ED) Additional Instructions: Please return to the Emergency Department if symptoms worsen or any other concerns. Alternate between Tylenol and ibuprofen for pain control. Apply ice and/or heat to the area. May use muscle relaxers as well. Prescriptions: Cyclobenzaprine [Flexeril] 5 mg PO BID #10 tablet Is patient prescribed a controlled substance at d/c from ED?: No Referrals: None,Stated [Primary Care Provider] - 1-2 days Time of Disposition: 10:34
[2021-09-08 10:56] VITALS: BP 96/55; PULSE 64; RESP 18
== END 2021-09-08 10:56 | disposition home or self-care (01) ==
LOC: EC 09:58
DX: S39.012A Strain of muscle, fascia and tendon of lower back, initial encounter (principal); F17.200 Nicotine dependence, unspecified, uncomplicated; X58.XXXA Exposure to other specified factors, initial encounter
CPT/HCPCS: 99282; 96372; J1885

== ENCOUNTER 2022-02-02 00:59 | Emergency (ER) | payer OTHER ==
[2022-02-02 01:14] VITALS: BP 110/72; PULSE 83; RESP 16; TEMP 97.4
[2022-02-02] MEDS ORDERED: LIDOCAINE 1% INJ 10MG/ML (5 ML VIAL-PF) SQ ONE (01:18)
[2022-02-02] MEDS ORDERED: CEPHALEXIN 500 MG CAP PO STA (01:32)
[2022-02-02] MEDS ORDERED: DIPH,PERTUS(ACELL)TETVAC-LF 0.5 ML VIAL IM ONE (01:32)
--- NOTE | 2022-02-02 01:42 | ED ---
Wound/Laceration HPI - General Chief Complaint: Wound/Laceration Stated Complaint: Right hand laceration Time Seen by Provider: 02/02/22 01:18 Source: patient, RN notes reviewed Mode of arrival: ambulatory Limitations: no limitations - History of Present Illness Initial Comments: This is a right-hand dominant male who was doing dishes just prior to arrival when he sustained a laceration to the dorsum of his right hand. Patient states he does not believe there is any glass within the wound. Patient states he was cut on broken glass. Denying any significant pain. Patient able to move his hand fully with flexion. However is unable to extend his index finger. Last tetanus unknown. No other injuries. No headache, no fever or chills, no changes in vision or hearing, no sore throat or difficulty with speech, no neck pain, no chest pain or shortness of breath, no abdominal pain, no nausea or vomiting, no changes in urination or bowel movements, no numbness or tingling, no skin rashes or lesions. Patient is left-handed - Related Data Previous Rx's Medication Instructions Recorded Cyclobenzaprine [Flexeril] 5 mg PO BID #10 tablet 09/08/21 Cephalexin [Keflex] 500 mg PO Q6HR #40 cap 02/02/22 Allergies Allergy/AdvReac Type Severity Reaction Status Date / Time bee venom protein (honey bee) Allergy Dyspnea Verified 02/02/22 01:14 loratadine [From Claritin] Allergy Confusion Verified 02/02/22 01:14 Review of Systems ROS Statement: Those systems with pertinent positive or pertinent negative responses have been documented in the HPI. ROS Other: All systems not noted in ROS Statement are negative. Past Medical History Past Medical History: No Reported History Additional Past Medical History / Comment(s): fr neck c1 fx History of Any Multi-Drug Resistant Organisms: None Reported Past Surgical History: No Surgical Hx Reported Past Psychological History: No Psychological Hx Reported Smoking Status: Current every day smoker Past Alcohol Use History: None Reported Past Drug Use History: None Reported General Exam - General Exam Comments Initial Comments: Patient does not appear to be ill or toxic. No distress Limitations: no limitations General appearance: alert, in no apparent distress Head exam: Present: atraumatic, normocephalic, normal inspection Eye exam: Present: normal appearance, PERRL, EOMI. Absent: scleral icterus, conjunctival injection, periorbital swelling ENT exam: Present: normal exam, mucous membranes moist Neck exam: Present: normal inspection, full ROM. Absent: tenderness, meni ngismus, lymphadenopathy Respiratory exam: Present: normal lung sounds bilaterally. Absent: respiratory distress, wheezes, rales, rhonchi, stridor, chest wall tenderness, accessory muscle use Cardiovascular Exam: Present: regular rate, normal rhythm, normal heart sounds. Absent: systolic murmur, diastolic murmur, rubs, gallop, clicks GI/Abdominal exam: Present: soft. Absent: tenderness Extremities exam: Present: normal capillary refill. Absent: normal inspection (Laceration noted to the dorsum of the right hand), full ROM (Range of motion limited with regards to right index finger), tenderness Right Forearm Wrist exam: Present: normal inspection, full ROM. Absent: tenderness Hand Wrist exam: Present: laceration (Dorsum, right hand). Absent: normal inspection, full ROM, tenderness, swelling, abrasion, ecchymosis, deformity, crepitus, dislocation, erythema, amputation, nail avulsion, subungual hematoma Neuro motor exam: Present: wrist extension intact, thumb opposition intact, thumb IP flexion intact, thumb adduction intact, fingers 2-5 abduction intact, other (History unable to extend the right index finger at the proximal interphalangeal joint or at the DIP.) Neurosensory exam: Present: radial nerve intact, ulnar nerve intact, median nerve intact Vascular: Present: normal capillary refill. Absent: vascular compromise, Pallo, pulse deficit radial art, pulse deficit ulnar art Back exam: Present: normal inspection Neurological exam: Present: alert, oriented X3, CN II-XII intact Psychiatric exam: Present: normal affect, normal mood Skin exam: Present: warm, dry, intact, normal color. Absent: rash Course Vital Signs 02/02/22 01:11 Temperature 97.4 F L Pulse Rate 83 Respiratory 16 Rate Blood Pressure 110/72 O2 Sat by Pulse 97 Oximetry Procedures - Laceration Laceration #1 Consent Obtained: verbal consent Indication: laceration Site: hand (Left) Size (cm): 4 Description: linear Depth: simple, single layer Anesthetic Used: lidocaine 1% Anesthesia Technique: local infiltration Amount (mls): 4 Pre-repair: wound explored, irrigated extensively Type of Sutures: nylon Size of Sutures: 5-0 Number of Sutures: 3 Technique: simple, interrupted Patient Tolerated Procedure: well Additional Comments: Patient has a 100% extensor tendon laceration with retraction of the proximal aspect. No foreign body. Sterile dressing applied, and antibiotic ointment applied. Figure splint applied with lucy taping. Neurovascular status intact. - Orthopedic Splinting/Casting Injury #1 Side: right Upper Extremity Injury Location: finger (Right index finger with lucy taping to the middle finger) Upper Extremity Immobilizer: finger (other) Medical Decision Making - Medical Decision Making Patient presents with isolated laceration to the right hand. No foreign body. 100% extensor tendon laceration with regard to the right index finger. Discussed the case with on-call orthopedics, Chandra ibarra. Patient to follow-up with Dr. Alfaro Sterile bandage, fingers with lucy taping, prophylactic antibiotics. Tetanus was updated. Discussed with orthopedics. The case was discussed in detail with ED attending physician. Presentation, findings, treatment plan discussed in detail. Substitute Crossing Guard Dr. Marquez Disposition Clinical Impression: Laceration of right hand without foreign body, Traumatic rupture of extensor tendon of finger Narrative: Extensor tendon laceration, right index finger Disposition: HOME SELF-CARE Condition: Good Instructions (If sedation given, give patient instructions): Laceration (ED), Tendon Laceration (ED) Additional Instructions: Suture removal per orthopedics. Call at 8 AM Thursday morning to the hand surgeon's office to schedule appointment. Take the antibiotics as directed. Wash the wound daily with warm soapy water. Apply thin layer of antibiotic ointment such as Neosporin or triple antibiotic oriented. Reapply the sterile dressing and the finger splint. Lucy tape the index and middle fingers together. Prescriptions: Cephalexin [Keflex] 500 mg PO Q6HR #40 cap Is patient prescribed a controlled substance at d/c from ED?: No Referrals: Shawn Alfaro DO [Doctor of Osteopathic Medicine] - 02/03/22 8:00 am Time of Disposition: 02:46
[2022-02-02] MEDS ORDERED: BACITRACIN OINT 1 EACH PACKET TOPICAL ONE (02:42)
--- NOTE | 2022-02-02 02:46 | XR ---
EXAM: XR Right Hand Complete, 3 or More Views CLINICAL HISTORY: ITS.REASON XR Reason: Laceration, injury, assess for foreign body TECHNIQUE: Frontal, lateral and oblique views of the right hand. COMPARISON: No previous studies. FINDINGS: Bones/joints: No acute fracture, dislocation, or destructive process noted. Soft tissues: Minimal subcutaneous air is noted about the midshaft of the right third made carpal. No radiopaque foreign body is detected. Other findings: Somewhat limited evaluation due to technical factors. IMPRESSION: 1. No radiopaque foreign bodies detected. 2. No acute fracture or dislocation. 3. Apparent soft tissue injury about the midshaft of the right third metacarpal. Clinical correlation is advised.
== END 2022-02-02 03:06 | disposition home or self-care (01) ==
LOC: EC 00:59
DX: S66.320A Laceration of extensor muscle, fascia and tendon of right index finger at wrist and hand level, initial encounter (principal); S61.421A Laceration with foreign body of right hand, initial encounter; F17.200 Nicotine dependence, unspecified, uncomplicated; Z23 Encounter for immunization; W25.XXXA Contact with sharp glass, initial encounter
CPT/HCPCS: 73130; 90715; 99283; 90471; 12002; J2001

== ENCOUNTER 2023-01-23 10:56 | Emergency (ER) | payer OTHER ==
[2023-01-23] MEDS ORDERED: hydrOXYzine pamoate 25 MG CAP PO STA (11:46)
--- NOTE | 2023-01-23 11:53 | ED ---
Anxiety HPI - General Chief Complaint: Anxiety Stated Complaint: Anxiety Time Seen by Provider: 01/23/23 11:37 Source: patient Mode of arrival: ambulatory - History of Present Illness Initial Comments: Patient is a 37 year old male who presents to the emergency department for anxiety. Patient reports increased anxiety for the past month with daily panic attacks over the past couple weeks. Patient has history of panic attacks states he has not had one several years. Patient expresses increased anxiety regarding his who is . States the panic attack instructed him at work today he had to leave. He denies chest pain and shortness of breath. Patient does not have a primary care provider, constant, psychiatrist. He is not suicidal or homicidal. - Related Data Home Medications: Previous Rx's Medication Instructions Recorded Cyclobenzaprine [Flexeril] 5 mg PO BID #10 tablet 09/08/21 Cephalexin [Keflex] 500 mg PO Q6HR #40 cap 02/02/22 LORazepam [Ativan] 0.5 mg PO BID 3 Days #6 tab 01/23/23 Allergies/Adverse Reactions: Allergies Allergy/AdvReac Type Severity Reaction Status Date / Time bee venom protein (honey bee) Allergy Dyspnea Verified 01/23/23 11:07 loratadine [From Claritin] Allergy Confusion Verified 01/23/23 11:07 Review of Systems ROS Statement: Those systems with pertinent positive or pertinent negative responses have been documented in the HPI. ROS Other: All systems not noted in ROS Statement are negative. Past Medical History Past Medical History: No Reported History Additional Past Medical History / Comment(s): fr neck c1 fx History of Any Multi-Drug Resistant Organisms: None Reported Past Surgical History: No Surgical Hx Reported Past Psychological History: Anxiety, Depression, Panic Disorder Smoking Status: Current every day smoker Past Alcohol Use History: None Reported, Daily Past Drug Use History: None Reported General Exam Limitations: no limitations General appearance: alert, anxious Eye exam: Present: normal appearance, PERRL, EOMI. Absent: scleral icterus, conjunctival injection, periorbital swelling Respiratory exam: Present: normal lung sounds bilaterally. Absent: respiratory distress, wheezes, rales, rhonchi, stridor Cardiovascular Exam: Present: regular rate, normal rhythm, normal heart sounds. Absent: systolic murmur, diastolic murmur, rubs, gallop, clicks Skin exam: Present: warm, dry, intact, normal color. Absent: rash Course Vital Signs 01/23/23 01/23/23 11:08 14:00 Temperature 98.2 F 97.6 F Pulse Rate 70 82 Respiratory 18 20 Rate Blood Pressure 130/81 126/70 O2 Sat by Pulse 99 97 Oximetry Medical Decision Making - Medical Decision Making EKG taken at 11:38, interpreted by myself Sinus rhythm, incomplete right bundle-branch block, ventricular rate 64, CT interval 152, QRS duration 92, QTC 374 Was pt. sent in by a medical professional or institution (, PA, PAPER MILL SUPERVISOR, urgent care, hospital, or longterm...) When possible be specific @ -No Did you speak to anyone other than the patient for history (EMS, parent, family, police, friend...)? What history was obtained from this source @ -No Did you review nursing and triage notes (agree or disagree)? Why? @ -I reviewed and agree with nursing and triage notes Were old charts reviewed (outside hosp., previous admission, EMS record, old EKG, old radiological studies, urgent care reports/EKG's, longterm records)? Report findings @ -No old charts were reviewed Differential Diagnosis (chest pain, altered mental status, abdominal pain women, abdominal pain men, vaginal bleeding, weakness, fever, dyspnea, syncope, headache, dizziness, GI bleed, back pain, seizure, CVA, palpatations, mental health)? @ -Differential Mental Health Depression, anxiety, bipolar, psychosis, schizophrenia, borderline personality, situational depression, adjustment disorder, behavioral disorder, brain tumor, malingering, substance abuse, encephalopathy, medication reaction, dementia, hypothyroidism, degenerative neurologic disorder, lupus.... This is not meant to be all-inclusive list EKG interpreted by me (3pts min.). @ -As above X-rays interpreted by me (1pt min.). @ -None done CT interpreted by me (1pt min.). @ -None done U/S interpreted by me (1pt. min.). @ -None done What testing was considered but not performed or refused? (CT, X-rays, U/S, labs)? Why? @ -None What meds were considered but not given or refused? Why? @ -None Did you discuss the management of the patient with other professionals (professionals i.e. Dr., PA, PAPER MILL SUPERVISOR, lab, RT, psych nurse, social media designer, mva reactor operator, teacher, parachute officer, nurse outreach case manager)? Give summary @ -No Was smoking cessation discussed for >3mins.? @ -No Was critical care preformed (if so, how long)? @ -No Were there social determinants of health that impacted care today? How? (Homeles sness, low income, unemployed, alcoholism, drug addiction, transportation, low edu. Level, literacy, decrease access to med. care, detention, rehab)? @ -No Was there de-escalation of care discussed even if they declined (Discuss DNR or withdrawal of care, Hospice)? DNR status @ -No What co-morbidities impacted this encounter? (DM, HTN, Smoking, COPD, CAD, Cancer, CVA, ARF, Chemo, Hep., AIDS, mental health diagnosis, sleep apnea, morbid obesity)? @ -None Was patient admitted / discharged? Hospital course, mention meds given and route, prescriptions, significant lab abnormalities, going to OR and other pertinent info. @ -Discharged. EPS evaluated patient he was given resources and will follow up with [facility] this week. Patient is not a threat to himself or others he is discharged in stable condition. He will be discharged with a short prescription of Ativan which he will use as needed. We discussed sedating affects of benzodiazepines. Undiagnosed new problem with uncertain prognosis? @ -No Drug Therapy requiring intensive monitoring for toxicity (Heparin, Nitro, Insulin, Cardizem)? @ -No Were any procedures done? @ -No Diagnosis/symptom? @ -anxiety, panic attack Acute, or Chronic, or Acute on Chronic? @ -acute Uncomplicated (without systemic symptoms) or Complicated (systemic symptoms)? @ -uncomplicated Side effects of treatment? @ -No Exacerbation, Progression, or Severe Exacerbation? @ -No Poses a threat to life or bodily function? How? (Chest pain, [place], [place], pneumonia, PE, COPD, DKA, ARF, appy, cholecystitis, CVA, Diverticulitis, Homicidal, Suicidal, threat to staff... and all critical care pts) @ -No Dr. Keyes is my attending Disposition Clinical Impression: Panic attack, Acute anxiety Disposition: HOME SELF-CARE Condition: Good Instructions (If sedation given, give patient instructions): Generalized Anxiety Disorder (ED), Panic Disorder (ED) Additional Instructions: Follow up with [facility] as planned. Take medication as directed. Return to the emergency department if you experience new, concerning, or worsening symptoms. Prescriptions: LORazepam [Ativan] 0.5 mg PO BID 3 Days #6 tab Is patient prescribed a controlled substance at d/c from ED?: No Referrals: None,Stated [Primary Care Provider] - 1-2 days
[2023-01-23 14:03] VITALS: BP 126/70; PULSE 82; RESP 20; TEMP 97.6
== END 2023-01-23 14:00 | disposition home or self-care (01) ==
LOC: EC 10:56
DX: F41.0 Panic disorder [episodic paroxysmal anxiety] (principal); F17.200 Nicotine dependence, unspecified, uncomplicated; Z86.59 Personal history of other mental and behavioral disorders; Z91.030 Bee allergy status; Z88.8 Allergy status to other drugs, medicaments and biological substances
CPT/HCPCS: 99283

== ENCOUNTER 2024-01-04 15:21 | Emergency (ER) | payer OTHER ==
[2024-01-04 15:35] VITALS: RESP 18
--- NOTE | 2024-01-04 16:18 | ED ---
Arrhythmia/Palpitations HPI - General Source: patient, RN notes reviewed Mode of arrival: ambulatory <Alisha Calderon - Last Filed: 01/04/24 16:16> - General Source: patient, RN notes reviewed, old records reviewed <Baljit Liao - Last Filed: 01/04/24 22:08> - General Chief Complaint: Arrhythmia/Palpitations Stated Complaint: Rib pain, blurred vision, left leg numbness Time Seen by Provider: 01/04/24 16:16 - History of Present Illness Initial Comments: Quick note: 38-year-old male presented to the ER with a chief complaint of palpitations. He states has been going on for approximately 1 week. He states yesterday he noticed his left leg was numb. He states today he was endorsing blurry vision. Patient has a past medical history significant of anxiety. No known cardiac history. (Alisha Calderon) Is a 38-year-old male with past medical history for anxiety presents to the emergency department complaining of palpitations as well as nonspecific other symptoms. States he has intermittent blurry vision as well as left leg numbness. States this is somewhat typical for previous panic attacks. Has been more persistent throughout the last week which is why presents for further evaluation. Under more financial and relationship stressors lately. Is on no medications. Was having a panic attack at the grocery store yesterday. Presents for further evaluation. Denies any magdiel chest pain. Denies shortness of breath. Denies any abdominal pain, nausea, vomiting. No other acute complaints at this time. States he feels relatively comfortable at this time with improved symptoms right now. Presents for further evaluation at this time. Palpitations but no other symptoms right now. Originally seen as a quick note. I evaluated patient when he was placed in a hallway bed. (Baljit Liao) - Related Data Home Medications Medication Instructions Recorded Confirmed No Known Home Medications 01/04/24 01/04/24 Previous Rx's Medication Instructions Recorded LORazepam [Ativan] 0.5 mg PO BID PRN 3 Days #6 tab 01/04/24 Allergies Allergy/AdvReac Type Severity Reaction Status Date / Time bee venom protein (honey bee) Allergy Dyspnea Verified 01/04/24 18:01 loratadine [From Claritin] Allergy Confusion Verified 01/04/24 18:01 Review of Systems ROS Other: All systems not noted in ROS Statement are negative. <Alisha Calderon - Last Filed: 01/04/24 16:16> ROS Other: All systems not noted in ROS Statement are negative. <Baljit Liao - Last Filed: 01/04/24 22:08> ROS Statement: Those systems with pertinent positive or pertinent negative responses have been documented in the HPI. Review of Systems: CONST: Denies fever EYES: Denies blurry vision ENT: Denies nasal congestion C/V: Endorses heart palpitations RESP: Denies shortness of breath GI: Denies abdominal pain : Denies dysuria SKIN: Denies rash. MSK: Denies joint pain. NEURO: Denies headache (Baljit Liao) Past Medical History Past Medical History: No Reported History Additional Past Medical History / Comment(s): fr neck c1 fx History of Any Multi-Drug Resistant Organisms: None Reported Past Surgical History: No Surgical Hx Reported Past Psychological History: Anxiety, Depression, Panic Disorder Smoking Status: Current every day smoker Past Alcohol Use History: None Reported Past Drug Use History: None Reported <Alisha Calderon - Last Filed: 01/04/24 16:16> General Exam <Alisha Calderon - Last Filed: 01/04/24 16:16> <Baljit Liao - Last Filed: 01/04/24 22:08> - General Exam Comments Initial Comments: Visual Physical Exam Vital signs reviewed General: Well-appearing, nontoxic, no acute distress. Head: Normocephalic, atraumatic Eyes: PERRLA, EOMI ENT: Airway patent Chest: Nonlabored breathing Skin: No visual rash, normal skin tone Neuro: Alert and oriented 3 Musculoskeletal: No gross abnormalities (Alisha Calderon) General: Appears anxious. HEAD: Normal with no signs of head trauma. EYES: PERRLA, EOMI, conjunctiva normal, no discharge. ENT: Hearing grossly intact, normal oropharynx. RESPIRATORY: Clear breath sounds bilaterally. No wheezes, rales, or rhonchi. C/V: Regular rate and rhythm. S1 and S2 auscultated, no edema, peripheral pulses 2+ and intact throughout ABD: Abd is soft, nontender, nondistended EXT: Normal range of motion, no obvious deformity SKIN: No rashes or lesions observed on exposed skin. NEURO: Alert and oriented x 4. Cranial nerves II-XII intact. No focal sensory or strength deficits. GCS of 15. NIH of 0. (Baljit Liao) Course Vital Signs 01/04/24 01/04/24 15:30 18:48 Temperature 98.8 F 98.1 F Pulse Rate 75 65 Respiratory 18 18 Rate Blood Pressure 118/75 116/71 O2 Sat by Pulse 97 97 Oximetry Medical Decision Making <Alisha Calderon - Last Filed: 01/04/24 16:16> - Lab Data Result diagrams: 01/04/24 16:00 01/04/24 16:00 - EKG Data -: EKG Interpreted by Me <Baljit Liao - Last Filed: 01/04/24 22:08> - Medical Decision Making I performed the quick note portion of this chart. Electronically signed by Alisha Calderon PA-C (Alisha Calderon) Was pt. sent in by a medical professional or institution (TONIE Wadsworth, COURT OF APPEALS JUDGE, urgent care, hospital, or fpc...) When possible be specific @ -No Did you speak to anyone other than the patient for history (EMS, parent, family, police, friend...)? What history was obtained from this source @ -No Did you review nursing and triage notes (agree or disagree)? Why? @ -I reviewed and agree with nursing and triage notes Were old charts reviewed (outside hosp., previous admission, EMS record, old EKG, old radiological studies, urgent care reports/EKG's, fpc records)? Report findings @ -Compared today's EKG with EKG from January 23, 2023 which revealed no obvious acute changes. Differential Diagnosis (chest pain, altered mental status, abdominal pain women, abdominal pain men, vaginal bleeding, weakness, fever, dyspnea, syncope, headache, dizziness, GI bleed, back pain, seizure, CVA, palpatations, mental health, musculoskeletal)? @ -MDM differential heart palpitations EKG interpreted by me (3pts min.). @ -As above X-rays interpreted by me (1pt min.). @ -Chest x-ray reveals no obvious acute cardiopulmonary process. CT interpreted by me (1pt min.). @ -None done U/S interpreted by me (1pt. min.). @ -None done What testing was considered but not performed or refused? (CT, X-rays, U/S, labs)? Why? @ -None What meds were considered but not given or refused? Why? @ -None Did you discuss the management of the patient with other professionals (professionals i.e. , PA, COURT OF APPEALS JUDGE, lab, RT, psych nurse, social media manager, certified breastfeeding educator, teacher, business services officer, case management social worker)? Give summary @ -No Was smoking cessation discussed for >3mins.? @ -No Was critical care preformed (if so, how long)? @ -No Were there social determinants of health that impacted care today? How? (Homelessness, low income, unemployed, alcoholism, drug addiction, transportation, low edu. Level, literacy, decrease access to med. care, prison, rehab)? @ -No Was there de-escalation of care discussed even if they declined (Discuss DNR or withdrawal of care, Hospice)? DNR status @ -No What co-morbidities impacted this encounter? (DM, HTN, Smoking, COPD, CAD, Cancer, CVA, ARF, Chemo, Hep., AIDS, mental health diagnosis, sleep apnea, morbid obesity)? @ -Anxiety Was patient admitted / discharged? Hospital course, mention meds given and ro misty, prescriptions, significant lab abnormalities, going to OR and other pertinent info. @ -Based on patient's presentation and physical exam, I do believe he is likely experiencing anxiety and panic attacks over the last week with his nonspecific symptoms and heart palpitations. Has a history of this. However we will obtain cardiac workup. He will be given a dose of IV Ativan. He was in agreement this plan. Vital signs within acceptable limits. Relatively no symptoms at this time. EKG shows no signs of acute ischemia. Laboratory studies are all within acceptable limits including undetectable troponin. Chest x-ray shows no signs of acute cardiopulmonary process. On reevaluation, patient is feeling improved. He will be discharged home at this time. Patient was in agreement with this plan. I will provide him with a short course of Ativan for home. Recommended following up with PCP and he was in agreement this plan. Strict return precautions discussed. I will provide the patient with a prescription for Ativan. I instructed the patient to follow up with their PCP in the next 1-3 days. I explained that the patient should return to the emergency department if they experience any worsening symptoms. Strict return precautions were discussed with the patient. The patient expressed understanding of these instructions. I answered all questions that the patient had. The patient was discharged home in good condition with their prescriptions and follow up information. Undiagnosed new problem with uncertain prognosis? @ -No Drug Therapy requiring intensive monitoring for toxicity (Heparin, Nitro, Insulin, Cardizem)? @ -No Were any procedures done? @ -No Diagnosis/symptom? @ -Anxiety, panic attack, heart palpitations Acute, or Chronic, or Acute on Chronic? @ -Acute on chronic Uncomplicated (without systemic symptoms) or Complicated (systemic symptoms)? @ -Uncomplicated Side effects of treatment? @ -No Exacerbation, Progression, or Severe Exacerbation? @ -No Poses a threat to life or bodily function? How? (Chest pain, [place], [place], pneumonia, PE, COPD, DKA, ARF, appy, cholecystitis, CVA, Diverticulitis, Homicidal, Suicidal, threat to staff... and all critical care pts) @ -Unlikely (Baljit Liao) - Lab Data Lab Results 01/04/24 01/04/24 01/04/24 Range/Units 16:00 16:00 16:00 WBC 8.0 (3.8-10.6) k/uL RBC 5.46 (4.30-5.90) m/uL Hgb 16.5 (13.0-17.5) gm/dL Hct 51.1 (39.0-53.0) % MCV 93.5 (80.0-100.0) fL MCH 30.2 (25.0-35.0) pg MCHC 32.3 (31.0-37.0) g/dL RDW 12.2 (11.5-15.5) % Plt Count 213 (150-450) k/uL MPV 7.6 Neutrophils % 68 % Lymphocytes % 22 % Monocytes % 6 % Eosinophils % 2 % Basophils % 1 % Neutrophils # 5.4 (1.3-7.7) k/uL Lymphocytes # 1.8 (1.0-4.8) k/uL Monocytes # 0.5 (0-1.0) k/uL Eosinophils # 0.2 (0-0.7) k/uL Basophils # 0.0 (0-0.2) k/uL PT 10.8 (10.0-12.5) sec INR 1.0 (<1.2) APTT 23.9 (22.0-30.0) sec Sodium 137 (137-145) mmol/L Potassium 4.7 (3.5-5.1) mmol/L Chloride 104 (98-107) mmol/L Carbon Dioxide 28 (22-30) mmol/L Anion Gap 5 mmol/L BUN 23 H (9-20) mg/dL Creatinine 0.72 (0.66-1.25) mg/dL Est GFR (CKD-EPI)AfAm >90 (>60 ml/min/1.73 sqM) Est GFR (CKD-EPI)NonAf >90 (>60 ml/min/1.73 sqM) Glucose 94 (74-99) mg/dL Calcium 9.6 (8.4-10.2) mg/dL Magnesium 1.9 (1.6-2.3) mg/dL Total Bilirubin 1.0 (0.2-1.3) mg/dL AST 36 (17-59) U/L ALT 28 (4-49) U/L Alkaline Phosphatase 47 (38-126) U/L Troponin I (0.000-0.034) ng/mL Total Protein 7.1 (6.3-8.2) g/dL Albumin 4.6 (3.5-5.0) g/dL 01/04/24 Range/Units 16:00 WBC (3.8-10.6) k/uL RBC (4.30-5.90) m/uL Hgb (13.0-17.5) gm/dL Hct (39.0-53.0) % MCV (80.0-100.0) fL MCH (25.0-35.0) pg MCHC (31.0-37.0) g/dL RDW (11.5-15.5) % Plt Count (150-450) k/uL MPV Neutrophils % % Lymphocytes % % Monocytes % % Eosinophils % % Basophils % % Neutrophils # (1.3-7.7) k/uL Lymphocytes # (1.0-4.8) k/uL Monocytes # (0-1.0) k/uL Eosinophils # (0-0.7) k/uL Basophils # (0-0.2) k/uL PT (10.0-12.5) sec INR (<1.2) APTT (22.0-30.0) sec Sodium (137-145) mmol/L Potassium (3.5-5.1) mmol/L Chloride (98-107) mmol/L Carbon Dioxide (22-30) mmol/L Anion Gap mmol/L BUN (9-20) mg/dL Creatinine (0.66-1.25) mg/dL Est GFR (CKD-EPI)AfAm (>60 ml/min/1.73 sqM) Est GFR (CKD-EPI)NonAf (>60 ml/min/1.73 sqM) Glucose (74-99) mg/dL Calcium (8.4-10.2) mg/dL Magnesium (1.6-2.3) mg/dL Total Bilirubin (0.2-1.3) mg/dL AST (17-59) U/L ALT (4-49) U/L Alkaline Phosphatase (38-126) U/L Troponin I <0.012 (0.000-0.034) ng/mL Total Protein (6.3-8.2) g/dL Albumin (3.5-5.0) g/dL - EKG Data EKG Comments: 12-lead Electrocardiogram Interpretation Note EKG was reviewed and interpreted by myself. 12-lead ECG performed at 1535 is interpreted by me as revealing normal sinus rhythm at a rate of 75 beats per minute. [place] is normal. [place] interval is 145 ms, QRS duration is 93 ms, QTc is 369 ms.. There were no ST or T wave abnormalities to suggest myocardial ischemia or injury. R wave progression across the precordium was satisfactory. By my interpretation this EKG is non-diagnostic for acute ischemia. (Baljit Liao) Disposition <Alisha Calderon - Last Filed: 01/04/24 16:16> Is patient prescribed a controlled substance at d/c from ED?: Yes When asked, does pt state using other controlled substances?: No If prescribed controlled substance>3 days was MAPS reviewed?: Prescribed <3 Days Time of Disposition: 18:00 <Baljit Liao - Last Filed: 01/04/24 22:08> Clinical Impression: Anxiety, Panic attack, Heart palpitations Disposition: HOME SELF-CARE Condition: Good Instructions (If sedation given, give patient instructions): Heart Palpitations (ED), Anxiety (ED) Prescriptions: LORazepam [Ativan] 0.5 mg PO BID PRN 3 Days #6 tab PRN Reason: Anxiety Referrals: None,Stated [Primary Care Provider] - 1-2 days Forms: [facility] PC[facility]
[2024-01-04 16:26] LABS: Basophils % (A) 1 %; Eosinophils # (A) 0.2 k/uL (0-0.7); Eosinophils % (A) 2 %; HCT 51.1 % (39.0-53.0); HGB 16.5 gm/dL (13.0-17.5); Lymphocytes # (A) 1.8 k/uL (1.0-4.8); Lymphocytes % (A) 22 %; MCH 30.2 pg (25.0-35.0); MCHC 32.3 g/dL (31.0-37.0); MCV 93.5 fL (80.0-100.0); Mean Platelet Volume 7.6; Monocytes # (A) 0.5 k/uL (0-1.0); Monocytes % (A) 6 %; Neutrophils # (A) 5.4 k/uL (1.3-7.7); Neutrophils % (A) 68 %; Platelet Count 213 k/uL (150-450); RBC 5.46 m/uL (4.30-5.90); RDW 12.2 % (11.5-15.5)
--- NOTE | 2024-01-04 16:37 | XR ---
EXAMINATION TYPE: XR chest 2V DATE OF EXAM: 01/04/2024 COMPARISON: 04/19/2020 HISTORY: Dysrhythmia TECHNIQUE: Frontal and lateral views of the chest are obtained. FINDINGS: There is no focal air space opacity, pleural effusion, or pneumothorax seen. The cardiac silhouette size is within normal limits. The osseous structures are intact. IMPRESSION: No acute cardiopulmonary process.
[2024-01-04 16:38] LABS: ALT 28 U/L (4-49); African American GFR (CKD) >90 (>60 ml/min/1.73 sqM); Albumin 4.6 g/dL (3.5-5.0); Anion Gap 5 mmol/L; Blood Urea Nitrogen 23 mg/dL (9-20); Calcium 9.6 mg/dL (8.4-10.2); Carbon Dioxide 28 mmol/L (22-30); Chloride 104 mmol/L (98-107); Glucose 94 mg/dL (74-99); Non-African American GFR(CKD) >90 (>60 ml/min/1.73 sqM); Sodium 137 mmol/L (137-145); Total Protein 7.1 g/dL (6.3-8.2)
[2024-01-04 16:44] LABS: Partial Thromboplastin Time 23.9 sec (22.0-30.0); Prothrombin Time 10.8 sec (10.0-12.5)
[2024-01-04 16:55] LABS: Magnesium 1.9 mg/dL (1.6-2.3); Potassium 4.7 mmol/L (3.5-5.1)
[2024-01-04 16:56] LABS: AST 36 U/L (17-59); Alkaline Phosphatase 47 U/L (38-126)
[2024-01-04] MEDS: LORazepam 2 MG/ML INJ IV STA (17:10)
[2024-01-04 18:50] VITALS: BP 116/71; PULSE 65; TEMP 98.1
== END 2024-01-04 18:50 | disposition home or self-care (01) ==
LOC: EC 15:21
DX: F41.0 Panic disorder [episodic paroxysmal anxiety] (principal); F17.200 Nicotine dependence, unspecified, uncomplicated; Z91.030 Bee allergy status; Z88.8 Allergy status to other drugs, medicaments and biological substances
CPT/HCPCS: 36415; 93005; 80053; 83735; 84484; 85025; 85610; 85730; 71046; 99285; 96374; J2060

== ENCOUNTER 2024-02-05 18:20 | Emergency (ER) | payer OTHER ==
[2024-02-05 18:25] VITALS: TEMP 98.2
--- NOTE | 2024-02-05 18:43 | ED ---
General Adult HPI - General Chief complaint: Extremity Injury, Upper Stated complaint: I[facility], Left arm puncture wound Time Seen by Provider: 02/05/24 18:26 Source: patient Mode of arrival: ambulatory Limitations: no limitations - History of Present Illness Initial comments: Dictation was produced using [employer] dictation software. please excuse any grammatical, word or spelling errors. Chief Complaint: 38-year-old male with puncture wound to the left forearm History of Present Illness: Patient 38-year-old male he was walking past a maintenance cart there was a wire that appears to be clean that was sticking out from the car. Patient ran into it states that he was punctured by the snare gauge the wire to his posterior left forearm. Patient noted some bleeding. The ROS documented in this emergency department record has been reviewed and confirmed by me. Those systems with pertinent positive or negative responses have been documented in the HPI. All other systems are other negative and/or noncontributory. - Related Data Previous Rx's Medication Instructions Recorded LORazepam [Ativan] 0.5 mg PO BID PRN 3 Days #6 tab 01/04/24 Cephalexin [Keflex] 500 mg PO Q6HR 5 Days #20 cap 02/05/24 Allergies Allergy/AdvReac Type Severity Reaction Status Date / Time bee venom protein (honey bee) Allergy Dyspnea Verified 02/05/24 18:25 loratadine [From Claritin] Allergy Confusion Verified 02/05/24 18:25 Review of Systems ROS Statement: Those systems with pertinent positive or pertinent negative responses have been documented in the HPI. ROS Other: All systems not noted in ROS Statement are negative. Past Medical History Past Medical History: No Reported History Additional Past Medical History / Comment(s): fr neck c1 fx History of Any Multi-Drug Resistant Organisms: None Reported Past Surgical History: No Surgical Hx Reported Past Psychological History: Anxiety, Depression, Panic Disorder Smoking Status: Current every day smoker Past Alcohol Use History: None Reported Past Drug Use History: None Reported General Exam - General Exam Comments Initial Comments: General: Well-appearing, nontoxic, no acute distress. Head: Normocephalic, atraumatic Eyes: PERRLA, EOMI ENT: Airway patent Chest: Nonlabored breathing Skin: No visual rash, normal skin tone Neuro: Alert and oriented 3 Musculoskeletal: No gross abnormalities Left upper extremity: Some hematoma to the posterior left forearm with a small puncture wound Limitations: no limitations Course Vital Signs 02/05/24 18:22 Temperature 98.2 F Pulse Rate 64 Respiratory 20 Rate Blood Pressure 123/75 O2 Sat by Pulse 99 Oximetry Medical Decision Making - Medical Decision Making Was pt. sent in by a medical professional or institution (, PA, SCRAP DROP OPERATOR, urgent care, hospital, or retirement...) When possible be specific @ -No Did you speak to anyone other than the patient for history (EMS, parent, family, police, friend...)? What history was obtained from this source @ -No Did you review nursing and triage notes (agree or disagree)? Why? @ -I reviewed and agree with nursing and triage notes Were old charts reviewed (outside hosp., previous admission, EMS record, old E KG, old radiological studies, urgent care reports/EKG's, retirement records)? Report findings @ -No old charts were reviewed Differential Diagnosis (chest pain, altered mental status, abdominal pain women, abdominal pain men, vaginal bleeding, musculoskeletal, weakness, fever, dyspnea, syncope, headache, dizziness, GI bleed, back pain, seizure, CVA, palpatations, mental health)? @ -Not applicable EKG interpreted by me (3pts min.). @ -None done X-rays interpreted by me (1pt min.). @ -X-ray of the forearm shows no acute processes CT interpreted by me (1pt min.). @ -None done U/S interpreted by me (1pt. min.). @ -None done What testing was considered but not performed or refused? (CT, X-rays, U/S, labs)? Why? @ -None What meds were considered but not given or refused? Why? @ -None Was smoking cessation discussed for >3mins.? @ -No Were there social determinants of health that impacted care today? How? (Homelessness, low income, unemployed, alcoholism, drug addiction, transpor tation, low edu. Level, literacy, decrease access to med. care, long term, rehab)? @ -No Was there de-escalation of care discussed even if they declined (Discuss DNR or withdrawal of care, Hospice)? DNR status @ -No What co-morbidities impacted this encounter? (DM, HTN, Smoking, COPD, CAD, Cancer, CVA, ARF, Chemo, Hep., AIDS, mental health diagnosis, sleep apnea, morbid obesity)? @ -None Was patient admitted / discharged? Hospital course, mention meds given and route, prescriptions, significant lab abnormalities, going to OR and other pertinent info. @ -38year-old male with puncture wound to the left forearm. Vital signs stable. Patient states that his tetanus is up-to-date within the last 2 to 3 years. X-rays unremarkable. Patient given prophylactic antibiotics. Return precautions discussed. Patient discharged Did you discuss the management of the patient with other professionals (professionals i.e. , PA, SCRAP DROP OPERATOR, lab, RT, psych nurse, manager social, machine sole leveler, teacher, sanitation officer, casey saw operator)? Give summary @ -No Was critical care preformed (if so, how long)? @ -No Undiagnosed new problem with uncertain prognosis? @ -No Drug Therapy requiring intensive monitoring for toxicity (Heparin, Nitro, Insulin, Cardizem)? @ -No Were any procedures done? @ -No Diagnosis/symptom? Acute, or Chronic, or Acute on Chronic? Uncomplicated (without systemic symptoms) or Complicated (systemic symptoms)? @ -Upper extremity puncture wound Side effects of treatment? @ -No Exacerbation, Progression, or Severe Exacerbation? @ -No Poses a threat to life or bodily function? How? (Chest pain, [place], [place], pneumonia, PE, COPD, DKA, ARF, appy, cholecystitis, CVA, Diverticulitis, Homicidal, Suicidal, threat to staff... and all critical care pts) @ -No Disposition Clinical Impression: Puncture wound Disposition: HOME SELF-CARE Condition: Good Instructions (If sedation given, give patient instructions): Puncture Wound (ED) Prescriptions: Cephalexin [Keflex] 500 mg PO Q6HR 5 Days #20 cap Is patient prescribed a controlled substance at d/c from ED?: No Referrals: None,Stated [Primary Care Provider] - 1-2 days Time of Disposition: 19:52
[2024-02-05] MEDS: DIPH,PERTUS(ACELL)TETVAC-LF 0.5 ML VIAL IM ONE (18:51)
--- NOTE | 2024-02-05 19:44 | XR ---
INDICATION: Patient age:Male; 38 years old; Reason for study: puncture wound posterior forearm. COMPARISON: None TECHNIQUE: The left forearm was examined in AP and lateral projections. FINDINGS: No acute fractures or dislocations. There is mild soft tissue swelling of the forearm loca lized posteriorly. No radiopaque foreign bodies. IMPRESSION: 1. No acute fractures or dislocations or radiopaque foreign bodies. 2. Generalized mild swelling of the forearm.
[2024-02-05 20:03] VITALS: BP 111/70; PULSE 62; RESP 16
== END 2024-02-05 20:04 | disposition home or self-care (01) ==
LOC: EC 18:20
DX: S51.832A Puncture wound without foreign body of left forearm, initial encounter (principal); F17.200 Nicotine dependence, unspecified, uncomplicated; Z91.030 Bee allergy status; Z88.8 Allergy status to other drugs, medicaments and biological substances; W26.8XXA Contact with other sharp object(s), not elsewhere classified, initial encounter; Y93.01 Activity, walking, marching and hiking
CPT/HCPCS: 99283

== ENCOUNTER 2024-02-11 17:49 | Emergency (ER) | payer OTHER ==
--- NOTE | 2024-02-11 18:06 | ED ---
Lower Extremity Injury HPI - General Chief Complaint: Extremity Injury, Lower Stated Complaint: L ankle injury Time Seen by Provider: 02/11/24 18:04 Source: patient, RN notes reviewed Mode of arrival: wheelchair Limitations: no limitations - History of Present Illness Initial Comments: 38-year-old male presenting with left ankle injury 5 hours ago. States he was on a ladder and lost his balance, falling about 3 feet onto the chart, where he landed wrong on his left ankle. He has not been able to bear weight on his ankle since the injury. Denies numbness or tingling. Denies loss of consciousness, did not hit head, denies other injuries. - Related Data Previous Rx's Medication Instructions Recorded LORazepam [Ativan] 0.5 mg PO BID PRN 3 Days #6 tab 01/04/24 Cephalexin [Keflex] 500 mg PO Q6HR 5 Days #20 cap 02/05/24 Allergies Allergy/AdvReac Type Severity Reaction Status Date / Time bee venom protein (honey bee) Allergy Dyspnea Verified 02/05/24 18:25 loratadine [From Claritin] Allergy Confusion Verified 02/05/24 18:25 Review of Systems ROS Statement: Those systems with pertinent positive or pertinent negative responses have been documented in the HPI. ROS Other: All systems not noted in ROS Statement are negative. Past Medical History Past Medical History: No Reported History Additional Past Medical History / Comment(s): fr neck c1 fx History of Any Multi-Drug Resistant Organisms: None Reported Past Surgical History: No Surgical Hx Reported Past Psychological History: Anxiety, Depression, Panic Disorder Smoking Status: Current every day smoker Past Alcohol Use History: None Reported Past Drug Use History: None Reported General Exam Limitations: no limitations General appearance: alert, in no apparent distress Left Lower Leg exam: Present: normal inspection, full ROM. Absent: tenderness, swelling Ankle exam: Present: tenderness (Tenderness over lateral malleolus), swelling (Moderate edema over lateral malleolus). Absent: normal inspection, full ROM (Limited flexion and extension), abrasion, laceration Foot/Toe exam: Present: normal inspection, full ROM. Absent: tenderness, swelling, abrasion, laceration Neurovascular tendon exam: Present: no vascular compromise. Absent: pulse deficit, abnormal cap refill, sensory deficit Course Vital Signs 02/11/24 02/11/24 17:53 18:59 Temperature 97.5 F L 97.9 F Pulse Rate 78 74 Respiratory 16 18 Rate Blood Pressure 123/76 125/88 O2 Sat by Pulse 97 97 Oximetry Procedures - Orthopedic Splinting/Casting Injury #1 Side: left Lower Extremity Injury Location: ankle Lower Extremity Immobilizer: posterior splint Additional Comments: Neurovascularly intact status post splint. Patient states he has crutches at home. Medical Decision Making - Medical Decision Making Was pt. sent in by a medical professional or institution (, TONIE, TOURIST CAMP ATTENDANT, urgent care, hospital, or halfway...) When possible be specific @ -No Did you speak to anyone other than the patient for history (EMS, parent, family, police, friend...)? What history was obtained from this source @ -No Did you review nursing and triage notes (agree or disagree)? Why? @ -I reviewed and agree with nursing and triage notes Were old charts reviewed (outside hosp., previous admission, EMS record, old EKG, old radiological studies, urgent care reports/EKG's, halfway records)? Report findings @ -No old charts were reviewed Differential Diagnosis (chest pain, altered mental status, abdominal pain women, abdominal pain men, vaginal bleeding, weakness, fever, dyspnea, syncope, head ache, dizziness, GI bleed, back pain, seizure, CVA, palpatations, mental health, musculoskeletal)? @ -Differential Musculoskeletal Muscular strain, contusion, ligament sprain, fracture, arthritis, septic arthritis, bursitis, cellulitis, muscle spasm, nerve compression, DVT, arterial occlusion, herpes zoster, electrolyte abnormality, tumor.... This is not meant to be in all inclusive list EKG interpreted by me (3pts min.). @ -None X-rays interpreted by me (1pt min.). @ -X-ray revealed suspicion of ligament avulsion from the lateral talus with prominent soft tissue swelling laterally and anteriorly CT interpreted by me (1pt min.). @ -None done U/S interpreted by me (1pt. min.). @ -None done What testing was considered but not performed or refused? (CT, X-rays, U/S, labs)? Why? @ -None What meds were considered but not given or refused? Why? @ -None Did you discuss the management of the patient with other professionals (professionals i.e. , TONIE, TOURIST CAMP ATTENDANT, lab, RT, psych nurse, social science teacher, primary special educator, teacher, information management officer, director case management)? Give summary @ -No Was smoking cessation discussed for >3mins.? @ -No Was critical care preformed (if so, how long)? @ -No Were there social determinants of health that impacted care today? How? (Homelessness, low income, unemployed, alcoholism, drug addiction, transportation, low edu. Level, literacy, decrease access to med. care, care home, rehab)? @ -No Was there de-escalation of care discussed even if they declined (Discuss DNR or withdrawal of care, Hospice)? DNR status @ -No What co-morbidities impacted this encounter? (DM, HTN, Smoking, COPD, CAD, Cancer, CVA, ARF, Chemo, Hep., AIDS, mental health diagnosis, sleep apnea, morbid obesity)? @ -None Was patient admitted / discharged? Hospital course, mention meds given and route, prescriptions, significant lab abnormalities, going to OR and other pertinent info. @ -Patient was discharged. Patient was seen and evaluated for left ankle injury 6 hours ago. Patient is unable to bear weight. Neurovascularly intact. X-ray reveals ligament avulsion from the lateral talus. Posterior splint applied. Supportive care discussed. Advised follow-up with orthopedics tomorrow. Strict return parameters discussed and patient shows understanding and is agreeable to plan. Case was discussed with my attending Dr. Keyes. Patient discharged in stable condition. Undiagnosed new problem with uncertain prognosis? @ -No Drug Therapy requiring intensive monitoring for toxicity (Heparin, Nitro, Insulin, Cardizem)? @ -No Were any procedures done? @ -Posterior splint placed Diagnosis/symptom? @ -Left lateral talus ligament avulsion Acute, or Chronic, or Acute on Chronic? @ -Acute Uncomplicated (without systemic symptoms) or Complicated (systemic symptoms)? @ -Uncomplicated Side effects of treatment? @ -No Exacerbation, Progression, or Severe Exacerbation? @ -No Poses a threat to life or bodily function? How? (Chest pain, [place], [place], pneumonia, PE, COPD, DKA, ARF, appy, cholecystitis, CVA, Diverticulitis, Homicidal, Suicidal, threat to staff... and all critical care pts) @ -Unlikely at this time Disposition Clinical Impression: Sprain of anterior talofibular ligament of left ankle Disposition: HOME SELF-CARE Condition: Stable Instructions (If sedation given, give patient instructions): Ankle Sprain (ED) Additional Instructions: Follow-up with Orthopedics tomorrow morning. Keep splint dry. Take Tylenol or Motrin for pain. Please return to the emergency department if symptoms change or worsen. Is patient prescribed a controlled substance at d/c from ED?: No Referrals: None,Stated [Primary Care Provider] - 1-2 days Riky Chua DO [Doctor of Osteopathic Medicine] - 1-2 days Time of Disposition: 20:11
--- NOTE | 2024-02-11 18:40 | XR ---
EXAMINATION TYPE: XR ankle complete LT DATE OF EXAM: 02/11/2024 COMPARISON: None HISTORY: Fall, pain TECHNIQUE: 3 view left ankle FINDINGS: There is prominent soft tissue swelling over the anterior and lateral aspects of the ankle. The ankle mortise appears intact. A displaced large fracture is not identified. There is some very s ubtle linear calcification just lateral to the talus at the ankle mortise. A small avulsion should be considered. No additional areas suspicious for fracture is evident. Follow up exams can be performed 7-10 days from acute trauma for continued pain IMPRESSION: 1. Suspicion of ligament avulsion from the lateral talus. 2. Prominent soft tissue swelling lateral and anterior ankle
[2024-02-11 18:59] VITALS: RESP 18
[2024-02-11 20:41] VITALS: BP 126/81; PULSE 71; TEMP 97.8
== END 2024-02-11 20:41 | disposition home or self-care (01) ==
LOC: EC 17:49
DX: S93.492A Sprain of other ligament of left ankle, initial encounter (principal); F17.200 Nicotine dependence, unspecified, uncomplicated; Z91.030 Bee allergy status; Z88.8 Allergy status to other drugs, medicaments and biological substances; W17.89XA Other fall from one level to another, initial encounter
CPT/HCPCS: 29515; 99283

== ENCOUNTER 2024-11-18 07:57 | Emergency (ER) | payer OTHER ==
--- NOTE | 2024-11-18 08:38 | ED ---
URI HPI - General Chief Complaint: Upper Respiratory Infection Stated Complaint: cough Time Seen by Provider: 11/18/24 08:13 Source: patient, family, RN notes reviewed Mode of arrival: ambulatory Limitations: no limitations - History of Present Illness Initial Comments: 39-year-old male with no reported medical conditions presenting to the emergency department for complaints of flulike symptoms over the past 2 days. States that he has been experiencing bodyaches, fatigue, cough, congestion, fevers and chills. States that his cough is intermittently dry and productive. Endorses postnasal drip. Denies difficulty in breathing, heart palpitations, dizziness, lightheadedness, nausea or vomiting. - Related Data Previous Rx's Medication Instructions Recorded LORazepam [Ativan] 0.5 mg PO BID PRN 3 Days #6 tab 01/04/24 Cephalexin [Keflex] 500 mg PO Q6HR 5 Days #20 cap 02/05/24 Benzonatate [Tessalon Perles] 100 mg PO TID PRN #15 capsule 11/18/24 Allergies Allergy/AdvReac Type Severity Reaction Status Date / Time bee venom protein (honey bee) Allergy Dyspnea Verified 11/18/24 08:15 loratadine [From Claritin] Allergy Confusion Verified 11/18/24 08:15 Review of Systems ROS Statement: Those systems with pertinent positive or pertinent negative responses have been documented in the HPI. ROS Other: All systems not noted in ROS Statement are negative. Past Medical History Past Medical History: No Reported History Additional Past Medical History / Comment(s): fr neck c1 fx History of Any Multi-Drug Resistant Organisms: None Reported Past Surgical History: No Surgical Hx Reported Past Psychological History: Anxiety, Depression, Panic Disorder Smoking Status: Current every day smoker Past Alcohol Use History: None Reported Past Drug Use History: None Reported General Exam Limitations: no limitations General appearance: alert, in no apparent distress Neck exam: Present: normal inspection. Absent: tenderness, meningismus, lymphadenopathy Respiratory exam: Present: normal lung sounds bilaterally. Absent: respiratory distress, wheezes, rales, rhonchi, stridor Cardiovascular Exam: Present: normal rhythm, tachycardia, normal heart sounds. Absent: regular rate, systolic murmur, diastolic murmur, rubs, gallop, clicks GI/Abdominal exam: Present: soft, normal bowel sounds. Absent: distended, tenderness, guarding, rebound, rigid Extremities exam: Present: normal inspection, full ROM, normal capillary refill. Absent: tenderness, pedal edema, joint swelling, calf tenderness Back exam: Present: normal inspection Course Vital Signs 11/18/24 11/18/24 11/18/24 08:13 08:32 11:05 Temperature 100.5 F H 99.7 F H Pulse Rate 89 78 Respiratory 18 14 20 Rate Blood Pressure 116/73 107/65 O2 Sat by Pulse 96 95 Oximetry Medical Decision Making - Medical Decision Making Was pt. sent in by a medical professional or institution (, TONIE, BANKRUPTCY JUDGE, urgent care, hospital, or group home...) When possible be specific @ -No Did you speak to anyone other than the patient for history (EMS, parent, family, police, friend...)? What history was obtained from this source @ -No Did you review nursing and triage notes (agree or disagree)? Why? @ -I reviewed and agree with nursing and triage notes Were old charts reviewed (outside hosp., previous admission, EMS record, old EKG, old radiological studies, urgent care reports/EKG's, group home records)? Report findings @ -No old charts were reviewed Differential Diagnosis (chest pain, altered mental status, abdominal pain women, abdominal pain men, vaginal bleeding, weakness, fever, dyspnea, syncope, headache, dizziness, GI bleed, back pain, seizure, CVA, palpatations, mental health, musculoskeletal)? @ -COVID 19, RSV, influenza, pneumonia, acute bronchitis, URI, this list is not all inclusive EKG interpreted by me (3pts min.). @ -None X-rays interpreted by me (1pt min.). @ -Chest x-ray no acute cardiopulmonary process or disease CT interpreted by me (1pt min.). @ -None done U/S interpreted by me (1pt. min.). @ -None done What testing was considered but not performed or refused? (CT, X-rays, U/S, labs)? Why? @ -None What meds were considered but not given or refused? Why? @ -None Did you discuss the management of the patient with other professionals (professionals i.e. TONIE Wadsworth, BANKRUPTCY JUDGE, lab, RT, psych nurse, social media content specialist, induction heating equipment setter, teacher, correction officer head, case reviewer)? Give summary @ -No Was smoking cessation discussed for >3mins.? @ -No Was critical care preformed (if so, how long)? @ -No Were there social determinants of health that impacted care today? How? (Homelessness, low income, unemployed, alcoholism, drug addiction, transportation, low edu. Level, literacy, decrease access to med. care, half-way, rehab)? @ -No Was there de-escalation of care discussed even if they declined (Discuss DNR or withdrawal of care, Hospice)? DNR status @ -No What co-morbidities impacted this encounter? (DM, HTN, Smoking, COPD, CAD, Cancer, CVA, ARF, Chemo, Hep., AIDS, mental health diagnosis, sleep apnea, morbid obesity)? @ -None Was patient admitted / discharged? Hospital course, mention meds given and route, prescriptions, significant lab abnormalities, going to OR and other pertinent info. @ -Discharge. 39-year-old male presenting to emergency department with URI symptoms. Patient is febrile on arrival was provided with dose of Tylenol. Chest x-ray is unremarkable. Patient has tested positive for influenza B. Supportive treatment discussed at bedside. Prescription sent for Neal Steinberg. Recommend follow-up with primary care provider. Case discussed with Dr. Woods Undiagnosed new problem with uncertain prognosis? @ -No Drug Therapy requiring intensive monitoring for toxicity (Heparin, Nitro, Insulin, Cardizem)? @ -No Were any procedures done? @ -No Diagnosis/symptom? @ -Influenza B Acute, or Chronic, or Acute on Chronic? @ -Acute Uncomplicated (without systemic symptoms) or Complicated (systemic symptoms)? @ -Uncomplicated Side effects of treatment? @ -No Exacerbation, Progression, or Severe Exacerbation? @ -No Poses a threat to life or bodily function? How? (Chest pain, [place], [place], pneumonia, PE, COPD, DKA, ARF, appy, cholecystitis, CVA, Diverticulitis, Homicidal, Suicidal, threat to staff... and all critical care pts) @ -No - Lab Data Lab Results 11/18/24 Range/Units 10:53 Influenza Type A (PCR) Not Detected (Not Detectd) Influenza Type B (PCR) Detected A (Not Detectd) RSV (PCR) Not Detected (Not Detectd) SARS-CoV-2 (PCR) Not Detected (Not Detectd) Disposition Clinical Impression: Influenza B Disposition: HOME SELF-CARE Condition: Good Instructions (If sedation given, give patient instructions): Influenza (DC) Additional Instructions: Please return to the Emergency Department if symptoms worsen or any other concerns. Prescriptions: Benzonatate [Tessalon Perles] 100 mg PO TID PRN #15 capsule PRN Reason: Cough Is patient prescribed a controlled substance at d/c from ED?: No Referrals: None,Stated [Primary Care Provider] - 1-2 days Time of Disposition: 10:56
--- NOTE | 2024-11-18 09:11 | XR ---
EXAMINATION TYPE: XR chest 2V DATE OF EXAM: 11/18/2024 9:04 AM COMPARISON: 01/04/2024 CLINICAL INDICATION: Male, 39 years old with history of cough, fever, wheeze, TECHNIQUE: XR chest 2V view(s) obtained. FINDINGS: The heart size is normal. The pulmonary vasculature is normal. The lungs are clear. IMPRESSION: 1. No acute pulmonary process. [facility], Workstation: [facility], 11/18/2024 9:08 AM
[2024-11-18 10:16] LABS: Influenza A Not Detected (Not Detectd); Influenza B Detected (Not Detectd); RSV Not Detected (Not Detectd)
[2024-11-18] MEDS: ACETAMINOPHEN TAB 500 MG TAB PO STA (10:54)
[2024-11-18 11:08] VITALS: BP 107/65; PULSE 78; RESP 20; TEMP 99.7
== END 2024-11-18 11:06 | disposition home or self-care (01) ==
LOC: EC 07:57
DX: J10.1 Influenza due to other identified influenza virus with other respiratory manifestations (principal); F17.200 Nicotine dependence, unspecified, uncomplicated; Z91.030 Bee allergy status; Z88.8 Allergy status to other drugs, medicaments and biological substances
CPT/HCPCS: 71046; 87636; 99283